=== PATIENT | male | born 1955 | race African-American/Black ===

== ENCOUNTER 2024-06-03 19:35 | Inpatient (IN) | payer MEDICARE, MEDICAID ==
[~2024-06-03] VITALS: Ht 185.4 cm; Wt 82.9 kg
[~2024-06-03 19:35] MED LIST: ALBU108A5 INH; ATOR20TA PO; CEFD300C2 PO; FURO1TAB31 PO; FURO40TA4 PO; GABA-1250 PO; GLIP5TAB21 PO; ISOS10TA2 PO; LISI-275 PO; METO25TA93 PO; NIFE90TA75 PO; PANT40TA2 PO; PRED20TA2 PO; SEMA4INJ SC; SPIR25TA PO; TAMS0.4C39 PO
--- NOTE | 2024-06-03 19:47 | ED.PDOC ---
HPI Comments 68 year old male CYNDI presents to the ED with chief complaint of SOB. Patient reports that he has been experiencing SOB for several days now, worsening over time and had visited [facility] for further evaluation. EMS relays that the patient was found to have elevated troponin and was transferred to our ED for higher level of care. Patient states he feels much better when sitting up and believes he is having CHF exacerbation, which he has had before. Patient notes that he is on 2L of O2 via NC at home. Patient denies any chest pain, dizziness, fever, chills, cough, or headache. Chief Complaint: Shortness of Breath Time Seen by MD: 19:42 Primary Care Provider: RENEK Reviewed Notes: Nurses Notes, Injection Mold Tooling Technician Notes, Medications, Allergies Allergies: Coded Allergies: NO KNOWN ALLERGIES (Unverified , 06/10/12) Home Meds Active Scripts Furosemide (Lasix) 40 Mg Tab, 40 MG PO BID for 30 Days, #60 TAB 3 Refills Prov:NISREEN CASTANEDA MD 11/05/23 Spironolactone (Aldactone) 25 Mg Tab, 50 MG PO DAILY for 30 Days, #30 TAB 3 Refills Prov:NISREEN CASTANEDA MD 11/05/23 Lisinopril (Lisinopril) 5 Mg Tab, 20 MG PO BID for 30 Days, #60 TAB 3 Refills Prov:NISREEN CASTANEDA MD 11/05/23 Reported Medications Gabapentin (Gabapentin) 300 Mg Cap, 1 CAP PO TID 10/31/23 Lisinopril (Lisinopril) 5 Mg Tab, 1 TAB PO DAILY 10/31/23 Metoprolol Succinate (Metoprolol Succinate Er) 25 Mg Tab, 1 TAB PO DAILY 10/31/23 Semaglutide (Ozempic) 4 Mg/3 Ml Inj, 1 MG SC QWEEKLY 10/31/23 Atorvastatin Calcium (Lipitor) 20 Mg Tab, 1 TAB PO DAILY 10/31/23 Glipizide (Glipizide) 5 Mg Tab, 1 TAB PO BID 10/31/23 Albuterol Sulfate (Albuterol Sulfate Hfa) 108 Mcg/Act Aer, 2 PUFF INH Q6HR PRN for WHEEZING 10/31/23 Furosemide (Furosemide) 40 Mg Tab, 1 TAB PO DAILY 10/31/23 Tamsulosin Hcl (Tamsulosin Hcl) 0.4 Mg Cap, 1 TAB PO DAILY 10/31/23 Nifedipine (Nifedipine Er) 90 Mg Tab, 1 TAB PO DAILY 06/10/12 Information Source: Patient, Emergency Med Personnel Mode of Arrival: EMS Severity: Moderate Timing: Days Duration: Since onset Prehospital treatment: None Onset: At Rest Cardiac Risk Factors: HTN, Diabetes Associated Signs and Symptoms: SOB Past Medical History PAST MEDICAL HISTORY: CHF, DM, HTN Surgical History: Denies all surgeries Family History Family History: No family hx of HTN, No family hx of Stroke Social History Smoker: Cigarettes, Less Than 1 Pack/Day Alcohol: Other Drugs: Denies Drug Use Lives In: Home Constitutional: denies: chills, diaphoresis, fatigue, fever, malaise, sweats, weakness, others EENTM: denies: blurred vision, double vision, ear bleeding, ear discharge, ear drainage, ear pain, ear ringing, eye pain, eye redness, hearing loss, mouth pain, mouth swelling, nasal discharge, nose bleeding, nose congestion, nose pain, photophobia, tearing, throat pain, throat swelling, voice changes, others Respiratory: reports: shortness of breath; denies: cough, hemoptysis, orthopnea, SOB at rest, SOB with excertion, stridor, wheezing, others Cardiovascular: denies: chest pain, dizzy spells, diaphoresis, Dyspnea on exertion, edema, irregular heart beat, left arm pain, lightheadedness, palpitations, PND, syncope, others Gastrointestinal: denies: abdomen distended, abdominal pain, blood streaked bowels, constipated, diarrhea, dysphagia, difficulty swallowing, hematemesis, melena, nausea, poor appetite, poor fluid intake, rectal bleeding, rectal pain, vomiting, others Genitourinary: denies: burning, dysuria, flank pain, frequency, hematuria, incontinence, penile discharge, penile sore, pain, testicle pain, testicle swelling, urgency, others Neurological: denies: dizziness, fainting, headache, left sided numbness, left sided weakness, numbness, paresthesia, pre-existing deficit, right sided numbness, right sided weakness, seizure, speech problems, tingling, tremors, weakness, others Musculoskeletal: denies: back pain, gout, joint pain, joint swelling, muscle pain, muscle stiffness, neck pain, others Integumetry: denies: bruises, change in color, change in hair/nails, dryness, laceration, lesions, lumps, rash, wounds, others Allergic/Immunocompromised: denies: Difficulty Healing, Frequent Infections, Hives, Itching, others Hematologic/Lymphatic: denies: anemia, blood clots, easy bleeding, easy bruising, swollen glands, others Endocrine: denies: excessive hunger, excessive sweating, excessive thirst, excessive urination, flushing, intolerance to cold, intolerance to heat, unexpla ined weight gain, unexplained weight loss, others Psychiatric: denies: anxiety, bipolar disorder, depression, hopeless, panic disorder, schizophrenia, sleepless, suicidal, others All Other Systems: Reviewed and Negative Physical Exam General Appearance: No Apparent Distress, Normal HEENT: Normal ENT Inspection, PERRL/EOMI Neck: Full Range of Motion, Non-Tender, Normal, Normal Inspection Respiratory: Chest Non-Tender, Lungs Clear, No Accessory Muscle Use, No Respiratory Distress, Normal Breath Sounds Cardiovascular: No Edema, No JVD, No Murmur, No Gallop, Normal Peripheral Pulses, Regular Rate/Rhythm Breast Exam: Deferred Gastrointestinal: No Organomegaly, Non Tender, No Pulsatile Mass, Normal Bowel Sounds, Soft Genitalia: Deferred Pelvic: Deferred Rectal: Deferred Extremities: No calf tenderness, Normal capillary refill, Normal inspection, No rmal range of motion, Non-tender, No pedal edema Musculoskeletal : Apperance: Normal Neurologic: Alert, client services director II-XII nml as Tested, No Motor Deficits, Normal Affect, Normal Mood, No Sensory Deficits Cerebellar Function: Normal Reflexes: Normal Skin: Dry, Normal Color, Warm Lymphatic: No Adenopathy EKG EKG : Pulse Rate (adult): 81 Addy: Normal Cardiac Rhythm: NSR Block: RBBB Hypertrophy: None ST: Nonsp Was a procedure done? Was a procedure done?: No CP Differential Dx Differential Diagnosis: Other Differential Diagnosis: Other Differential Diagnosis: Angina, Aortic dissection, Chest Wall Pain, Cholelithia sis, Costochondritis, Esophageal reflux/spasm, Gastritis, Myocardial Infarction, Pericarditis, Pneumonia, Pneumothorax, Pulmonary Embolus X-Ray, Labs, Meds, VS Vital Signs Date Time Temp Pulse Resp B/P (MAP) Pulse Ox O2 Delivery O2 Flow Rate FiO2 10/30/24 20:35 81 06/03/24 20:32 81 06/03/24 20:16 97.9 78 11 194/111 (138) 98 97.9 06/03/24 19:36 79 06/03/24 19:36 98.1 78 20 181/102 (128) 98 Lab Test 06/03/24 20:28 06/03/24 20:00 Range/Units Urine Color Pending Urine Clarity Pending Urine pH Pending Urine Specific [place] Pending Urine Protein Pending Urine Ketones Pending Urine Blood Pending Urine Nitrite Pending Urine Bilirubin Pending Urine Urobilinogen Pending Urine Leukocyte Esterase Pending Urine RBC Pending Urine WBC Pending Urine Squamous Epithelial Cells Pending Urine Bacteria Pending Urine Glucose Pending White Blood Count 5.1 4.4-10.8 10^3/uL Red Blood Count 4.20 L 4.5-5.90 10^6/uL Hemoglobin 12.6 L 13.5-17.5 g/dL Hematocrit 38.4 L 41.0-53.0 % Mean Corpuscular Volume 91.5 80.0-100.0 fL Mean Corpuscular Hemoglobin 29.9 28.0-32.0 pg Mean Corpuscular Hemoglobin Concent 32.7 32.0-36.0 g/dL Red Cell Distribution Width 16.5 H 11.8-14.3 % Platelet Count 188 140-450 10^3/uL Mean Platelet Volume 9.1 6.9-10.8 fL Neutrophils (%) (Auto) 73.1 37.0-80.0 % Lymphocytes (%) (Auto) 16.1 10.0-50.0 % Monocytes (%) (Auto) 8.0 0.0-12.0 % Eosinophils (%) (Auto) 1.9 0.0-7.0 % Basophils (%) (Auto) 0.9 0.0-2.0 % Neutrophils # (Auto) 3.7 1.6-8.6 10 ^3/uL Lymphocytes # (Auto) 0.8 0.4-5.4 10 ^3/uL Monocytes # (Auto) 0.4 0-1.3 10 ^3/uL Eosinophils # (Auto) 0.1 0-0.8 10 ^3/uL Basophils # (Auto) 0 0-0.2 10 ^3/uL Nucleated Red Blood Cells 0.2 % Sodium Level Pending Potassium Level Pending Chloride Level Pending Carbon Dioxide Level Pending Anion Gap Pending Blood Urea Nitrogen Pending Creatinine Pending Glomerular Filtration Rate Calc Pending BUN/Creatinine Ratio Pending Serum Glucose Pending Calcium Level Pending Troponin I High Sensitivity 103 *H </=54 ng/L Time of 1ST Reevaluation: 20:42 Reevaluation 1ST: Unchanged (child monitor- nsr) Time of 2ND Reevaluation: 20:23 Reevaluation 2ND: Resolved (child monitor- nsr) Time of 3RD Reevaluation: 20:36 Reevaluation 3RD: Unchanged (child monitor- nasr) Patient Education/Counseling: Diagnosis, Treatment Family Education/Counseling: No Family Present Additional Information pt was accepted by Dr Heart from [facility] unstable angina. he has been chest pain free while here. i will consult hospitalist to admit him Departure 1 Departure Time of Disposition: 20:24 Impression: Primary Impression: Unstable angina Disposition: ADMITTED INPATIENT Admit to: Tele Condition: Stable Critical Care Note Critical Care Time?: Yes Critical care comment: due to concerns for patient's condition with acute deterioration, causing life and limb threatening states, the care required my highest level of attention. i assessed the patient, ordered the proper tests, reassessed the response to treatments, communicated with medical personnel, formulated a plan of care and disposition. total time include at least 50% face-face interactions and does not include any procedures Stability Stability form required: No Heart Score Heart Score: Heart Score Response (Comments) Value History Highly Suspicious 2 EKG Normal 0 Age >65 2 Risk Factors >3 or Hx ASHD 2 Troponin 1-2 x's Normal limit 1 Total 7 I personally scribed for CHUYITA SUN MD ([email or web address]) on 06/03/24 at 19:47. Electronically submitted by Pablo Azevedo ([email or web address]). CHUYITA SUN MD Jun 03, 2024 19:47
[2024-06-03 20:12] LABS: Basophils # (auto) 0 10 ^3/uL (0-0.2); Basophils % (auto) 0.9 % (0.0-2.0); Eosinophils # (auto) 0.1 10 ^3/uL (0-0.8); Eosinophils % (auto) 1.9 % (0.0-7.0); Hematocrit 38.4 % (41.0-53.0); Hemoglobin 12.6 g/dL (13.5-17.5); Lymphocytes # (auto) 0.8 10 ^3/uL (0.4-5.4); Lymphocytes % (auto) 16.1 % (10.0-50.0); Mean Corpuscular Hemoglobin 29.9 pg (28.0-32.0); Mean Corpuscular Hgb Conc. 32.7 g/dL (32.0-36.0); Mean Corpuscular Volume 91.5 fL (80.0-100.0); Monocytes # (auto) 0.4 10 ^3/uL (0-1.3); Neutrophils # (auto) 3.7 10 ^3/uL (1.6-8.6); Neutrophils % (auto) 73.1 % (37.0-80.0); Nucleated Red Blood Cells % 0.2 %; Platelet Count (auto) 188 10^3/uL (140-450); Red Cell Distribution Width 16.5 % (11.8-14.3); White Blood Cell 5.1 10^3/uL (4.4-10.8)
[2024-06-03 20:27] LABS: Chloride 110 mmol/L (98-107); Potassium 4.2 mmol/L (3.5-5.1); Sodium 148 mmol/L (136-145)
[2024-06-03 20:28] LABS: Anion Gap 7 (5-15); Calcium 9.1 mg/dL (8.7-10.4); Carbon Dioxide 31 mmol/L (20-31)
[2024-06-03 20:30] LABS: Urine Bacteria None Seen /hpf (None Seen)
[2024-06-03 20:33] LABS: BUN/Creatinine Ratio 19.1 (10.0-20.0); Blood Urea Nitrogen 26 mg/dL (9-23); Glucose 113 mg/dL (74-106)
[2024-06-03] MEDS ORDERED: DEXTROSE (50%) 50ML SYRG IV PRN (21:00)
[2024-06-03] MEDS ORDERED: ONDANSETRON HCL 4 MG/2 ML VIAL IV PRN (21:00)
[2024-06-03] MEDS ORDERED: NITROGLYCERIN 0.4 MG SL TAB SL PRN (21:00)
[2024-06-03] MEDS ORDERED: TEMAZEPAM 15 MG CAP PO PRN (21:00)
[2024-06-03] MEDS ORDERED: MORPHINE SULFATE INJ 2 MG/ml SYRG IV PRN (21:00)
[2024-06-03 21:16] LABS: Urine Amorphous Crystal FEW /hpf (None Seen); Urine Blood TRACE /uL (Negative); Urine Clarity Clear (Clear); Urine Color Colorless (Yellow); Urine Protein, UAD 2+ (Negative); Urine Specific Gravity 1.008 (1.001-1.035); Urine Urobilinogen Normal (Negative); Urine WBC <1 /hpf (0 - 3); Urine pH 5.5 (5.0-9.0)
[2024-06-03] MEDS: LABETALOL HCL 20 MG/4 ML VL IV ONE (21:23)
[2024-06-03 21:27] VITALS: BP 181/102; PULSE 81; RESP 20; TEMP 97.9; O2SAT 98
--- NOTE | 2024-06-03 21:30 | DVH ---
CHEST RADIOGRAPH Indication:cp Technique: Single frontal view of the chest was obtained Comparison: XY CHEST PORTABLE on DOS: 10/30/23 Findings/ IMPRESSION: Mild cardiomegaly with moderate bilateral pleural effusions. Superimposed infection not excluded. No pneumothorax.
--- NOTE | 2024-06-03 21:45 | ECG ---
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
--- NOTE | 2024-06-03 21:45 | ECG ---
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
[2024-06-03] MEDS: FUROSEMIDE 40 MG/4 ML VIAL IV ONE (21:48)
[2024-06-03] MEDS: InsuLIN REG 1unit/0.01ml Soln (100units/ml) SC SCH (22:00)
[2024-06-03] MEDS: ACCU-CHEK COMFORT CURVE STRIP VI SCH (22:22)
[2024-06-03] MEDS: ATORVASTATIN 20 MG TAB PO SCH (22:25)
[2024-06-03] MEDS: GABAPENTIN 300 MG CAP PO SCH (22:25)
--- NOTE | 2024-06-03 23:33 | DVHHP2 ---
History of Present Illness Reason for Visit: Shortness of breath History of Present Illness 68 year with a history of congestive heart failure evaluation shortness for breath. The patient reports a two day history of worsening shortness for breath with bilateral lower extremity swelling as well as testicular swelling. Reports mild chest pressure. Denies cough or fever. He currently uses oxygen at home. Denies any other acute complaints at the moment. Past Medical History Hypertension, diabetes mellitus and congestive heart failure Past Surgical History Denies Family History Denies Smoke: <1 pack per day ALCOHOL: occassional Drugs: None Lives: with Family Review of Systems Review of Systems Review of systems are currently negative otherwise addressed in HPI. Allergies: Coded Allergies: NO KNOWN ALLERGIES (Unverified , 06/10/12) Medications Current Medications Medications Dose Ordered Sig/Keegan Route Start Time Stop Time Status Last Admin Dose Admin Atorvastatin Calcium 20 mg HS PO 06/03/24 22:00 06/03/24 22:25 20 MG Aspirin 162 mg DAILY PO 06/04/24 10:00 Albuterol 2.5 mg Q6HPRN PRN NEB 06/03/24 21:00 Gabapentin 300 mg BID PO 06/03/24 22:00 06/03/24 22:25 300 MG Metoprolol Succinate 25 mg DAILY PO 06/04/24 10:00 Lisinopril 20 mg DAILY PO 06/04/24 10:00 Nifedipine 90 mg DAILY PO 06/04/24 10:00 Spironolactone 50 mg DAILY PO 06/04/24 10:00 Hydralazine HCl 10 mg Q6HP PRN IV 06/03/24 21:00 Diagnostic Test (Pha) 1 strip ACHS 06/03/24 22:00 06/03/24 22:22 1 STRIP Insulin Human Regular ACHS SC 06/03/24 22:00 Dextrose 50 ml UD PRN IV 06/03/24 21:00 Temazepam 15 mg QHSP PRN PO 06/03/24 21:00 Ondansetron HCl 4 mg Q4HP PRN IV 06/03/24 21:00 Acetaminophen 650 mg Q6HP PRN PO 06/03/24 21:00 Nitroglycerin 0.4 mg Q5MINP PRN SL 06/03/24 21:00 Morphine Sulfate 2 mg Q30M PRN IV 06/03/24 21:00 Furosemide 20 mg BIDD IV 06/04/24 06:00 Exam Vital Signs Vital Signs Date Time Temp Pulse Resp B/P (MAP) Pulse Ox O2 Delivery O2 Flow Rate FiO2 06/03/24 22:40 78 06/03/24 22:00 19 204/117 (146) 99 06/03/24 21:54 Nasal Cannula* 6 44 06/03/24 21:27 97.9 97.9 Exam Gen: 68-year-old male in mild distress Skin: Warm, dry, normal color and texture, no rash. HEENT: Normocephalic atraumatic, mucous membranes moist and pink. Neck: Cervical and supraclavicular nodes normal without enlargement, trachea is midline, thyroid gland is normal without masses. Pulmonary: Clear to auscultation and percussion bilaterally. Cardiac: Regular rate and rhythm. No murmur Abdomen: Soft, nontender, nondistended, bowel sounds present all 4 quadrants, no guarding, no rigidity, no organomegaly. Extremities: No cyanosis, clubbing, plus two bilateral pedal edema Neuro: Cranial nerves II through XII grossly intact, normal affect and speech, no focal motor deficits. Labs/Xrays ORDERING PHYSICIAN: CHUYITA SUN MD PROCEDURE(s): CXRP - CHEST PORTABLE REASON: cp ORDER NUMBER(s): [id number], ACCESSION NUMBER(s): [id number] CHEST RADIOGRAPH Indication:cp Technique: Single frontal view of the chest was obtained Comparison: XY CHEST PORTABLE on DOS: 10/30/23 Findings/ IMPRESSION: Mild cardiomegaly with moderate bilateral pleural effusions. Superimposed infection not excluded. No pneumothorax. Labs Test 06/03/24 23:00 06/03/24 20:28 06/03/24 20:00 Range/Units Urine Color Colorless Yellow Urine Clarity Clear Clear Urine pH 5.5 5.0-9.0 Urine Specific [place] 1.008 1.001-1.035 Urine Protein 2+ H Negative Urine Ketones Negative Negative Urine Blood Trace H Negative /uL Urine Nitrite Negative Negative Urine Bilirubin Negative Negative Urine Urobilinogen Normal Negative mg/dL Urine Leukocyte Esterase Negative Negative /uL Urine RBC 1 0 - 3 /hpf Urine WBC <1 0 - 3 /hpf Urine Squamous Epithelial Cells Few <5 /hpf Urine Amorphous Crystals Few None Seen /hpf Urine Bacteria None seen None Seen /hpf Urine Glucose Normal Normal mg/dL White Blood Count 5.1 4.4-10.8 10^3/uL Red Blood Count 4.20 L 4.5-5.90 10^6/uL Hemoglobin 12.6 L 13.5-17.5 g/dL Hematocrit 38.4 L 41.0-53.0 % Mean Corpuscular Volume 91.5 80.0-100.0 fL Mean Corpuscular Hemoglobin 29.9 28.0-32.0 pg Mean Corpuscular Hemoglobin Concent 32.7 32.0-36.0 g/dL Red Cell Distribution Width 16.5 H 11.8-14.3 % Platelet Count 188 140-450 10^3/uL Mean Platelet Volume 9.1 6.9-10.8 fL Neutrophils (%) (Auto) 73.1 37.0-80.0 % Lymphocytes (%) (Auto) 16.1 10.0-50.0 % Monocytes (%) (Auto) 8.0 0.0-12.0 % Eosinophils (%) (Auto) 1.9 0.0-7.0 % Basophils (%) (Auto) 0.9 0.0-2.0 % Neutrophils # (Auto) 3.7 1.6-8.6 10 ^3/uL Lymphocytes # (Auto) 0.8 0.4-5.4 10 ^3/uL Monocytes # (Auto) 0.4 0-1.3 10 ^3/uL Eosinophils # (Auto) 0.1 0-0.8 10 ^3/uL Basophils # (Auto) 0 0-0.2 10 ^3/uL Nucleated Red Blood Cells 0.2 % Sodium Level 148 H 136-145 mmol/L Potassium Level 4.2 3.5-5.1 mmol/L Chloride Level 110 H 98-107 mmol/L Carbon Dioxide Level 31 20-31 mmol/L Anion Gap 7 5-15 Blood Urea Nitrogen 26 H 9-23 mg/dL Creatinine 1.36 H 0.700-1.30 mg/dL Glomerular Filtration Rate Calc 57 >90 mL/min BUN/Creatinine Ratio 19.1 10.0-20.0 Serum Glucose 113 H 74-106 mg/dL Calcium Level 9.1 8.7-10.4 mg/dL B-Type Natriuretic Peptide 1646.05 0-100 pg/mL Assessment/Plan Assessment/Plan Assessment Acute on chronic congestive heart failure Elevated troponin rule out NSTEMI Diabetes mellitus Chronic kidney disease Accelerated hypertension Plan Admit the patient to telemetry to the hospitalist Cardiology consultation IV Lasix Resume home medications Continue treatment per orders. Plan discussed with: Patient My Orders Orders - NISREEN TARANGO AGACNP Procedure Category Date Status Time Atorvastatin (Lipitor) PHA 06/03/24 In Process 22:00 Aspirin Tablet PHA 06/04/24 In Process 10:00 Gabapentin Capsule PHA 06/03/24 In Process (Neurontin Capsule) 22:00 Metoprolol Xl PHA 06/04/24 In Process Succinate (Toprol Xl) 10:00 Lisinopril Tablet PHA 06/04/24 In Process (Zestril Tablet) 10:00 Nifedipine Er PHA 06/04/24 In Process (Procardia Xl 10:00 Spironolactone PHA 06/04/24 In Process (Aldactone) 10:00 Hydralazine Injection PHA 06/03/24 In Process (Apresoline Inject 21:00 * Cardiology Consult CONS 06/03/24 Transmitted 20:57 Basic Metabolic Panel LAB 06/04/24 Verified 04:00 Consistent DIET 06/04/24 Transmitted Carb(Ccho)Diabetes Breakfast Glucose Blood PHA 06/03/24 In Process (Accu-Chek Comfort 22:00 Insulin R (Human) PHA 06/03/24 In Process (Insulin R) 22:00 Dextrose 50% Syringe PHA 06/03/24 In Process 21:00 Admit ADMIT 06/03/24 Transmitted 20:57 Temazepam (Restoril) PHA 06/03/24 In Process 21:00 Ondansetron Hcl PHA 06/03/24 In Process (Zofran) 21:00 Complete Blood Count LAB 06/04/24 Verified 04:00 Echo 2d Mode Cardiac US 06/03/24 Logged DOP 20:57 Condition: Fair EDDI 06/03/24 In Process 20:57 Acetaminophen Tablet PHA 06/03/24 In Process (Tylenol Tablet) 21:00 Bedrest With Bathroom EDDI 06/03/24 In Process Privileg 20:57 Nitroglycerin PHA 06/03/24 In Process Sublingual (Ntrostat 21:00 Morphine Sulfate PHA 06/03/24 In Process Injection 21:00 Stat Ekg For Chest [facility] 06/03/24 In Process Pain 20:57 Notify Md Of Changes [facility] 06/03/24 In Process From Base 20:57 Make Up Operator For [facility] 06/03/24 In Process 24 Hours 20:57 Emergency Dysrhythmia [facility] 06/03/24 In Process Protocol 20:57 Rhythm Strips Once [facility] 06/03/24 In Process Every Shift 20:57 Oxygen By Nasal RT 06/03/24 Transmitted Cannula 20:57 Albuterol Medneb PHA 06/03/24 In Process (Ventolin Medneb) 21:00 Furosemide Injection [facility] 06/04/24 In Process (Lasix Injection) 06:00 Date of Service: Jun 03, 2024 Billing Provider: NISREEN TARANGO Common Visit Codes: [id number] INP/OBS CARE (HIGH) NISREEN TARANGO Jun 03, 2024 23:33
[2024-06-03] MEDS: cloNIDine HCL 0.1 MG TAB PO ONE (23:50)
[2024-06-04] MEDS: hydrALAZINE HCL 20 MG/ML VL IV PRN (04:27)
[2024-06-04 04:41] VITALS: PULSE 77; RESP 20; O2SAT 3; O2SAT 96
[2024-06-04] MEDS: ALBUTEROL SULF 2.5 MG/0.5ML(0.5%) NEB SOLN NEB PRN (04:41)
[2024-06-04 04:42] LABS: Basophils # (auto) 0 10 ^3/uL (0-0.2); Basophils % (auto) 0.9 % (0.0-2.0); Eosinophils # (auto) 0.1 10 ^3/uL (0-0.8); Eosinophils % (auto) 2.1 % (0.0-7.0); Hematocrit 35.5 % (41.0-53.0); Hemoglobin 11.5 g/dL (13.5-17.5); Lymphocytes # (auto) 0.9 10 ^3/uL (0.4-5.4); Lymphocytes % (auto) 19.9 % (10.0-50.0); Mean Corpuscular Hemoglobin 29.8 pg (28.0-32.0); Mean Corpuscular Hgb Conc. 32.4 g/dL (32.0-36.0); Monocytes # (auto) 0.6 10 ^3/uL (0-1.3); Monocytes % (auto) 13.1 % (0.0-12.0); Neutrophils # (auto) 2.9 10 ^3/uL (1.6-8.6); Nucleated Red Blood Cells % 0.1 %; Platelet Count (auto) 182 10^3/uL (140-450); Red Blood Cells 3.86 10^6/uL (4.5-5.90); Red Cell Distribution Width 16.6 % (11.8-14.3); White Blood Cell 4.6 10^3/uL (4.4-10.8)
[2024-06-04 04:49] LABS: Chloride 112 mmol/L (98-107); Sodium 149 mmol/L (136-145)
[2024-06-04 04:50] LABS: Anion Gap 2 (5-15); Calcium 8.6 mg/dL (8.7-10.4); Carbon Dioxide 35 mmol/L (20-31)
[2024-06-04 04:51] VITALS: PULSE 81; RESP 20; O2SAT 99
[2024-06-04 04:55] LABS: BUN/Creatinine Ratio 16.9 (10.0-20.0); Blood Urea Nitrogen 26 mg/dL (9-23); Glucose 155 mg/dL (74-106)
[2024-06-04] MEDS ORDERED: FUROSEMIDE 40 MG TAB PO SCH (06:00)
[2024-06-04] MEDS: FUROSEMIDE 20 MG/2 ML VIAL IV SCH (06:06)
--- NOTE | 2024-06-04 06:57 | ECG ---
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
[2024-06-04] MEDS: NIFEdipine ER 30 MG TAB PO SCH ×2 (08:15→08:40)
[2024-06-04] MEDS: clonazePAM 0.5 MG TAB PO ONE (08:30)
[2024-06-04 09:30] VITALS: O2SAT 99
--- NOTE | 2024-06-04 10:23 | DVH ---
Procedure: CT CHEST WITHOUT CONTRAST Reason for study/Clinical History: ro pneumonia Comparison Study: None available at time of dictation. Exam Date: 06/04/2024 09:48 AM TECHNIQUE: Multidetector CT of the chest was performed from the lung apices to the upper abdomen with out the use of intravenous contract. Axial, coronal and sagittal multiplanar reformats were performed . Radiation Dose Information: CT Dose: CTDI volume is 13.18 mGy. Dose-length product is 488.54 mGy*cm The dose indicators for CT are the volume Computed Tomography (CT) Dose Index (CTDIvol) and the Dose Length Product (DLP), and are measured in units of mGy and mGy-cm, respectively. These indicators are not patient dose, but values generated from the CT scanner acquisition factors. The report includes radiation exposure data for exposures received during this examination. FINDINGS: Lower neck: Normal thyroid. Lungs: Large bilateral pleural effusions with associated and consolidation in both lungs. Heart/Vascular Structures: Moderate cardiomegaly. Mild coronary artery disease. No pericardial effusi on. Lymph Nodes: No adenopathy Pleura: Large bilateral pleural effusions as above. Musculoskeletal: No acute osseous abnormality. Soft tissues: Normal. Upper abdomen: Limited portions of the upper abdomen are unremarkable. IMPRESSION: 1. Moderate cardiomegaly with evidence of congestive failure including large bilateral pleural effusi ons with associated atelactasis and consolidation in both lungs. Superimposed pneumonia is not exclud ed. Recommend clinical correlation and continued follow-up Radiation optimization: All CT scans at this facility use at least one of these dose optimization mart hniques: automated exposure control mA and/or kV adjustment per patient size (includes targeted exam s where dose is matched to clinical indication) or iterative reconstruction. HS:Y
--- NOTE | 2024-06-04 10:35 | DVHINCON2 ---
Date Seen: Jun 04, 2024 Referring Physician Reason for Consultation Elevated troponins History of Present Illness 68-year-old male patient with history of heart failure with preserved ejection fraction (EF 53% as of October), hypertension, type 2 diabetes, chronic kidney disease, history of methamphetamine and nicotine dependence (last use prior to hospitalization). He lives at home with a caregiver and is on home oxygen therapy. Patient presents with a chief complaint of shortness of breaths, which he reports has worsened over the past 2 days. He has experienced similar episodes in the past, though these instance is progressively worsening. Additionally, he notes bilateral lower extremity edema and testicular swelling. The patient denies any other acute complaint. In the ER his blood pressure was markedly elevated at 1 90/110 mmHg, indicative of hypertensive urgency or possible emergency. He was started on clonidine 0.2 mg once and nifedipine 60 mg daily for blood pressure control. His troponin levels were mildly elevated at 103, 1 08 and 93 likely due to demand ischemia secondary to hypertensive stress. Additionally his creatinine went from 1,36 to1,54 suggesting an acute kidney injury on chronic kidney disease. The chest x-ray showed bilateral effusion with no pneumothorax noted a superimposed infection could not be excluded. Chest CT was ordered for further evaluation of respiratory symptoms and pulmono logy was consulted due to the fusion findings on imaging. Cardiology was consulted given the troponin elevation and the need to assess for ischemic changes related to hypertensive urgency. Past Medical History Uncontrolled hypertension Drug abuse Methamphetamine use Chronic kidney disease stage IIIB Heart failure systolic/diastolic NYHA lll Drug-induced cardiomyopathy Type 2 diabetes Nicotine dependency Family History: Patient reports no known family medical history. Allergies: Coded Allergies: NO KNOWN ALLERGIES (Unverified , 06/10/12) Home Meds Active Scripts Furosemide (Lasix) 40 Mg Tab, 40 MG PO BID for 30 Days, #60 TAB 3 Refills Prov:NISREEN CASTANEDA MD 11/05/23 Spironolactone (Aldactone) 25 Mg Tab, 50 MG PO DAILY for 30 Days, #30 TAB 3 Refills Prov:NISREEN CASTANEDA MD 11/05/23 Lisinopril (Lisinopril) 5 Mg Tab, 20 MG PO BID for 30 Days, #60 TAB 3 Refills Prov:NISREEN CASTANEDA MD 11/05/23 Reported Medications Pantoprazole Sodium Sesquihydr (Protonix) 40 Mg Tab, 1 TAB PO BID for 30 Days, #60 06/04/24 Isosorbide Dinitrate (Isosorbide Dinitrate) 10 Mg Tab, 1 TAB PO TID for 30 Days, #90 06/04/24 Prednisone (Prednisone) 20 Mg Tab, 1 TAB PO BID for 5 Days, #10 06/04/24 Cefdinir (Cefdinir) 300 Mg Cap, 1 CAP PO BID for 6 Days, #12 06/04/24 Gabapentin (Gabapentin) 300 Mg Cap, 1 CAP PO TID 10/31/23 Metoprolol Succinate (Metoprolol Succinate Er) 25 Mg Tab, 1 TAB PO DAILY 10/31/23 Semaglutide (Ozempic) 4 Mg/3 Ml Inj, 1 MG SC QWEEKLY 10/31/23 Atorvastatin Calcium (Lipitor) 20 Mg Tab, 1 TAB PO DAILY 10/31/23 Glipizide (Glipizide) 5 Mg Tab, 1 TAB PO BID 10/31/23 Albuterol Sulfate (Albuterol Sulfate Hfa) 108 Mcg/Act Aer, 2 PUFF INH Q6HR PRN for WHEEZING 10/31/23 Tamsulosin Hcl (Tamsulosin Hcl) 0.4 Mg Cap, 1 TAB PO DAILY 10/31/23 Nifedipine (Nifedipine Er) 90 Mg Tab, 1 TAB PO DAILY 06/10/12 Current Medications Current Medications Medications (Trade) Dose Ordered Sig/Keegan Route PRN Reason Start Time Stop Time Status Last Admin Atorvastatin Calcium (Lipitor) 20 mg HS PO 06/03/24 22:00 06/03/24 22:25 Aspirin 162 mg DAILY PO 06/04/24 10:00 Albuterol (Ventolin Medneb) 2.5 mg Q6HPRN PRN NEB SHORTNESS OF BREATH 06/03/24 21:00 06/04/24 04:41 Furosemide (Lasix Tablet) 40 mg BIDD PO 06/04/24 06:00 06/03/24 21:31 DC Gabapentin (Neurontin Capsule) 300 mg BID PO 06/03/24 22:00 06/03/24 22:25 Metoprolol Succinate (Toprol Xl) 25 mg DAILY PO 06/04/24 10:00 Lisinopril (Zestril Tablet) 20 mg DAILY PO 06/04/24 10:00 Nifedipine (Procardia Xl (Time-Release)) 90 mg DAILY PO 06/04/24 10:00 06/04/24 08:12 DC Spironolactone (Aldactone) 50 mg DAILY PO 06/04/24 10:00 Hydralazine HCl (Apresoline Injection) 10 mg Q6HP PRN IV SBP>150 06/03/24 21:00 06/04/24 04:27 Diagnostic Test (Pha) (Accu-Chek Comfort Curve T) 1 strip ACHS 06/03/24 22:00 06/04/24 06:32 Insulin Human Regular (InsuLIN R) ACHS SC 06/03/24 22:00 06/04/24 06:31 Dextrose 50 ml UD PRN IV Blood Sugar LESS THAN 60 06/03/24 21:00 Temazepam (Restoril) 15 mg QHSP PRN PO FOR INSOMNIA 06/03/24 21:00 Ondansetron HCl (Zofran) 4 mg Q4HP PRN IV NAUSEA / VOMITING 06/03/24 21:00 Acetaminophen (Tylenol Tablet) 650 mg Q6HP PRN PO PAIN SCALE 1-3 OR TEMP>100.4 06/03/24 21:00 Nitroglycerin (Ntrostat Sublingual) 0.4 mg Q5MINP PRN SL FOR CHEST PAIN 06/03/24 21:00 Morphine Sulfate 2 mg Q30M PRN IV FOR CHEST PAIN 06/03/24 21:00 Furosemide (Lasix Injection) 20 mg BIDD IV 06/04/24 06:00 06/04/24 08:50 DC 06/04/24 06:06 Nifedipine (Procardia Xl (Time-Release)) 60 mg BID PO 06/04/24 08:15 Furosemide (Lasix Injection) 40 mg BIDD IV 06/04/24 18:00 Review of Systems Constitutional: No: Fever, Chills, Sweats, Weakness, Malaise, Other Eyes: No: Pain, Vision change, Conjunctivae inflammation, Eyelid inflammation, Other, Redness ENT: No: Ear pain, Ear discharge, Nose pain, Nose discharge, Nose congestion, Mouth pain, Mouth swelling, Throat pain, Throat swelling, Other Respiratory: Cough present, Shortness of breath, improving No Wheezing, Hemoptysis, Pleuritic Pain, Sputum, Wheezing, Other Cardiovascular: No: Chest Pain, Palpitations, Orthopnea, Paroxysmal Noc. Dyspnea, Edema, Lt Headedness, Other Gastrointestinal: No: Nausea, Vomiting, Abdominal Pain, Diarrhea, Constipation, Melena, Hematochezia, Other Musculoskeletal: No: other, neck pain, shoulder pain, arm pain, back pain, hand pain, leg pain, foot pain Neurological:; yes: Confusion, weakness, change in his speech Vital Signs Vital Signs Date Time Temp Pulse Resp B/P (MAP) Pulse Ox O2 Delivery O2 Flow Rate FiO2 06/04/24 09:30 99 Nasal Cannula 3.0 06/04/24 09:30 32 06/04/24 07:00 79 15 191/107 (135) 06/03/24 21:27 97.9 97.9 Physical Exam Examination General Appearance: AAO x1, none Cooperative HEENT: EOMI Respiratory: Clear to auscultation, Normal air movement Cardiovascular: Regular rate, Normal S1, Normal S2 Abdominal: Normal bowel sounds Extremities: Mild/moderate lateral some edema No cyanosis, Normal pulses Skin: No rashes, No breakdown Neuro: Normal tone, Sensation intact, Cranial nerves 3-12 NL, Reflexes 2+ Labs/Diagnostic Data Labs Test 06/04/24 04:20 06/03/24 23:00 06/03/24 20:28 06/03/24 20:00 Range/Units White Blood Count 4.6 4.4-10.8 10^3/uL Red Blood Count 3.86 L 4.5-5.90 10^6/uL Hemoglobin 11.5 L 13.5-17.5 g/dL Hematocrit 35.5 L 41.0-53.0 % Mean Corpuscular Volume 92.0 80.0-100.0 fL Mean Corpuscular Hemoglobin 29.8 28.0-32.0 pg Mean Corpuscular Hemoglobin Concent 32.4 32.0-36.0 g/dL Red Cell Distribution Width 16.6 H 11.8-14.3 % Platelet Count 182 140-450 10^3/uL Mean Platelet Volume 9.2 6.9-10.8 fL Neutrophils (%) (Auto) 64.0 37.0-80.0 % Lymphocytes (%) (Auto) 19.9 10.0-50.0 % Monocytes (%) (Auto) 13.1 H 0.0-12.0 % Eosinophils (%) (Auto) 2.1 0.0-7.0 % Basophils (%) (Auto) 0.9 0.0-2.0 % Neutrophils # (Auto) 2.9 1.6-8.6 10 ^3/uL Lymphocytes # (Auto) 0.9 0.4-5.4 10 ^3/uL Monocytes # (Auto) 0.6 0-1.3 10 ^3/uL Eosinophils # (Auto) 0.1 0-0.8 10 ^3/uL Basophils # (Auto) 0 0-0.2 10 ^3/uL Nucleated Red Blood Cells 0.1 % Sodium Level 149 H 136-145 mmol/L Potassium Level 4.0 3.5-5.1 mmol/L Chloride Level 112 H 98-107 mmol/L Carbon Dioxide Level 35 H 20-31 mmol/L Anion Gap 2 L 5-15 Blood Urea Nitrogen 26 H 9-23 mg/dL Creatinine 1.54 H 0.700-1.30 mg/dL Glomerular Filtration Rate Calc 49 >90 mL/min BUN/Creatinine Ratio 16.9 10.0-20.0 Serum Glucose 155 H 74-106 mg/dL Calcium Level 8.6 L 8.7-10.4 mg/dL Troponin I High Sensitivity 93 *H </=54 ng/L Urine Color Colorless Yellow Urine Clarity Clear Clear Urine pH 5.5 5.0-9.0 Urine Specific [place] 1.008 1.001-1.035 Urine Protein 2+ H Negative Urine Ketones Negative Negative Urine Blood Trace H Negative /uL Urine Nitrite Negative Negative Urine Bilirubin Negative Negative Urine Urobilinogen Normal Negative mg/dL Urine Leukocyte Esterase Negative Negative /uL Urine RBC 1 0 - 3 /hpf Urine WBC <1 0 - 3 /hpf Urine Squamous Epithelial Cells Few <5 /hpf Urine Amorphous Crystals Few None Seen /hpf Urine Bacteria None seen None Seen /hpf Urine Glucose Normal Normal mg/dL B-Type Natriuretic Peptide 1646.05 0-100 pg/mL Assessment Acute encephalopathy likely due to hypertensive emergency, stroke ruled out NSTEMI type 2 likely demand ischemia due to hypertensive emergency Acute hypoxemic respiratory failure likely due to bilateral pleural effusion likely transudative due to CHF exacerbation status post thoracentesis Heart failure systolic/diastolic likely due to Drug-induced cardiomyopathy due to chronic methamphetamine abuse, NYHA lll Acute kidney injury on chronic kidney disease stage III Plan/Recommendation CT scan of the head was negative Thoracentesis, 1 L of fluid was removed Troponins elevation likely due to demand ischemia due to hypertensive emergency, NSTEMI type 2 Conservative management Decrease the blood pressure gradually Continue labetalol 20 mg q.2 hours p.r.n. IV Spironolactone 50 mg daily p.o. Lisinopril 20 mg daily p.o. Metoprolol daily p.o. 50 mg Nifedipine 60 mg b.i.d. p.o. Oxygen supplementation through nasal cannula 2 L Echocardiogram is pending UDS is pending Thank you for allowing us participate in this case Case discussed with Dr. Wren Critical care, time spent: 45 minutes. Plan discussed with: Patient, Other (grandson) Date of Service: Jun 04, 2024 Billing Provider: ROSANNA WREN MD Cardiology Common Codes: [id number] INP/OBS CARE (High) MEME CAZARES RESIDENT Jun 04, 2024 10:35
[2024-06-04] MEDS: METOPROLOL SUCCINATE XL 50 MG TAB PO SCH (10:59)
[2024-06-04] MEDS: ACETAMINOPHEN 325 MG TAB PO PRN (11:00)
[2024-06-04] MEDS: LISINOPRIL 20 MG TAB PO SCH (11:00)
[2024-06-04] MEDS: ASPirin 81 mg TAB PO SCH (11:00)
[2024-06-04] MEDS: SPIRONOLACTONE 25 MG TAB PO SCH (11:01)
[2024-06-04 12:00] VITALS: PULSE 76; RESP 17; O2SAT 100
--- NOTE | 2024-06-04 12:23 | DVH ---
CT brain without contrast CLINICAL INDICATION: Altered mental status FINDINGS: The study was performed in a multidetector scanner. This study performed taking axial imag es from the skull base up to the vertex. Both brain and bone windows are photographed. Dose lowering techniques have been used including automated exposure control and adjustment of mA and /or KV according to patient size. Cortical sulcal markings are prominent. Faint low-density changes in the periventricular white matter No hemorrhage or edema No hydrocephalus No midline shift. No extra-axial fluid collections On bone windows no calvarial lesions. Paranasal sinuses are clear IMPRESSION: 1. No acute intracranial pathology. Atrophy with periventricular leukoencephalopathy Computed Tomographic Radiation Dosimetry Report: Total CTDI vol = 63 mGy Total DLP = 1100 mGy-cm All CT scans at this medical facility are performed using dose modulation techniques as appropriate t o a performed exam including the following: Automated exposure control was utilized; adjustment of the MA and/or KvP according to patient size; a nd use of iterative reconstruction technique.
[2024-06-04] MEDS ORDERED: LABETALOL HCL 20 MG/4 ML VL IV PRN (15:00)
--- NOTE | 2024-06-04 15:56 | DVH ---
DATE: June 04, 2024 PROCEDURE: ULTRASOUND GUIDED THORACENTESIS USING TEMPORARY CATHETER HISTORY: 68 Male with right pleural effusion requiring thoracentesis. DOCUMENTATION: Informed consent was obtained and a procedural time out was performed. Anesthesia: 1% lidocaine. TECHNIQUE: Ultrasound was used to locate the right pleural fluid collection with an image archived in the PACS. The skin over the right posterior hemithorax was sterilely prepped, draped, and infiltrate d with 1% lidocaine. Under real time ultrasound guidance, the right pleural space was accessed with a 19-gauge Yueh needle and connected to Vacutainers. The Yueh catheter was advanced, the needle was re moved and the temporary catheter was advanced and connected to the Vacutainer. Approximately 1 liters of marlena fluid was removed. The temporary catheter was removed and sterile dressings were applied. FINDINGS: Ultrasound demonstrates a moderate right pleural effusion. Imaging confirms the needle tip within the fluid. Post thoracentesis imaging demonstrates no significant residual fluid. IMPRESSION: 1. SUCCESSFUL ULTRASOUND GUIDED right THORACENTESIS.
--- NOTE | 2024-06-04 16:01 | DVH ---
CHEST RADIOGRAPH Indication:S/P THORA Technique: Single frontal view of the chest was obtained Comparison: XY CHEST PORTABLE on DOS: 06/03/24, XY CHEST PORTABLE on DOS: 10/30/23 FINDINGS: Lines and Tubes: None Lungs: No focal consolidation. Pleura: No effusion. No pneumothorax. Cardiomediastinal contours: Unremarkable Bones: No acute osseous abnormality. IMPRESSION: 1. No pneumothorax status post right thoracentesis
--- NOTE | 2024-06-04 16:15 | DVHPN2 ---
Subjective denies any symptoms Reviewed: Care Plan, H&P, Labs, Medications, Previous Orders Changes from previous H/P or p: No Changes General: Per HPI Objective Vitals Vital Signs Date Time Temp Pulse Resp B/P (MAP) Pulse Ox O2 Delivery O2 Flow Rate FiO2 06/04/24 14:00 64 15 192/94 (126) 100 06/04/24 12:00 Nasal Cannula* 2 28 06/04/24 08:00 98.1 98.1 Intake/Output Intake and Output 06/04/24 07:00 Output Total 1025 ml Balance -1025 ml Output Urine Total 1025 ml General Appearance: Alert, Oriented X3, Cooperative, No acute distress HEENT: Atraumatic, PERRLA Lungs: Clear to auscultation, Normal air movement Cardiovascular: Normal S1, Normal S2 Genitourinary: No Apparent Abnormalities Musculoskeletal: Normal sensory function, Normal motor function Neuro: Normal gait, Normal speech Psych/Mental Status: Mental status NL, Mood NL Medications Current Medications Medications Dose Ordered Sig/Keegan Route Start Time Stop Time Status Last Admin Dose Admin Atorvastatin Calcium 20 mg HS PO 06/03/24 22:00 06/03/24 22:25 20 MG Aspirin 162 mg DAILY PO 06/04/24 10:00 06/04/24 13:43 162 MG Albuterol 2.5 mg Q6HPRN PRN NEB 06/03/24 21:00 06/04/24 04:41 2.5 MG Gabapentin 300 mg BID PO 06/03/24 22:00 06/04/24 13:44 300 MG Lisinopril 20 mg DAILY PO 06/04/24 10:00 06/04/24 13:44 20 MG Spironolactone 50 mg DAILY PO 06/04/24 10:00 06/04/24 13:43 50 MG Hydralazine HCl 10 mg Q6HP PRN IV 06/03/24 21:00 06/04/24 04:27 10 MG Diagnostic Test (Pha) 1 strip ACHS 06/03/24 22:00 06/04/24 06:32 1 STRIP Insulin Human Regular ACHS SC 06/03/24 22:00 06/04/24 06:31 2 UNITS Dextrose 50 ml UD PRN IV 06/03/24 21:00 Temazepam 15 mg QHSP PRN PO 06/03/24 21:00 Ondansetron HCl 4 mg Q4HP PRN IV 06/03/24 21:00 Acetaminophen 650 mg Q6HP PRN PO 06/03/24 21:00 06/04/24 13:44 650 MG Nitroglycerin 0.4 mg Q5MINP PRN SL 06/03/24 21:00 Morphine Sulfate 2 mg Q30M PRN IV 06/03/24 21:00 Nifedipine 60 mg BID PO 06/04/24 08:15 Furosemide 40 mg BIDD IV 06/04/24 18:00 Metoprolol Succinate 50 mg DAILY PO 06/05/24 10:00 Labetalol HCl 20 mg Q2HPRN PRN IV 06/04/24 15:00 Laboratory Results Laboratory Tests 06/04/24 04:20 Chemistry Test 06/03/24 20:00 06/04/24 04:20 Calcium Level 9.1 mg/dL (8.7-10.4) 8.6 mg/dL (8.7-10.4) L Cardiac Markers Test 06/03/24 20:00 B-Type Natriuretic Peptide 1646.05 pg/mL (0-100) Urinalysis Test 06/03/24 20:28 Urine Color Colorless (Yellow) Urine Clarity Clear (Clear) Urine pH 5.5 (5.0-9.0) Urine Specific [place] 1.008 (1.001-1.035) Urine Protein 2+ (Negative) H Urine Ketones Negative (Negative) Urine Blood Trace /uL (Negative) H Urine Nitrite Negative (Negative) Urine Bilirubin Negative (Negative) Urine Urobilinogen Normal mg/dL (Negative) Urine Leukocyte Esterase Negative /uL (Negative) Urine RBC 1 /hpf (0 - 3) Urine WBC <1 /hpf (0 - 3) Urine Squamous Epithelial Cells Few /hpf (<5) Urine Amorphous Crystals Few /hpf (None Seen) Urine Bacteria None seen /hpf (None Seen) Urine Glucose Normal mg/dL (Normal) Labs and/or images reviewed: Labs reviewed by me, Image(s) reviewed by me Assessment/Plan Assessment/Plan Impression: -metabolic encephalopathy, probably toxic -bilateral pleural effusions -acute on chronic systolic and diastolic heart failure -history of polysubstance abuse -NSTEMI type 2 -CKD stage IIIA -anemia Plan: -patient was found to be unarousable. CT scan of the head performed. Negative for any acute intracranial pathology. Patient now alert and oriented x4 -thoracentesis -cardiology consultation -UDS -IV diuresis -O2 supplementation to keep saturation greater than 90% -start heart failure/ACS meds -repeat labs and chest x-ray in a.m. Total time spent with patient discussing and formulating plan of care: 35 minutes. This medical document was created using an electronic medical record system with [employer] dictation system. Although this document has been carefully reviewed, there may still be some phonetic and typographical errors. These areas are purely typographical due to imperfections of the software programs, and do not reflect any compromise in the patient's medical care. Plan discussed with: Patient, Other (RN, grandson) My Orders Orders - CHECO STACK NP Procedure Category Date Status Time Metoprolol Xl PHA 06/05/24 In Process Succinate (Toprol Xl) 10:00 Labetalol Hcl PHA 06/04/24 In Process (Labetalol Hcl) 15:00 * Radiologist Consult CONS 06/04/24 Transmitted 14:59 Basic Metabolic Panel LAB 06/05/24 Verified 04:00 Complete Blood Count LAB 06/05/24 Verified 04:00 Chest Portable XY 06/04/24 Resulted 15:23 Body Fluid Culture W/ LOWELL 06/04/24 Logged GS 15:59 Date of Service: Jun 04, 2024 Billing Provider: CHECO STACK NP Common Visit Codes: [id number] INP/OBS CARE(HIGH) CHECO STACK NP Jun 04, 2024 16:15
[2024-06-04] MEDS: FUROSEMIDE 40 MG/4 ML VIAL IV SCH (16:53)
[2024-06-04 19:30] VITALS: PULSE 67; RESP 16; O2SAT 96
[2024-06-04 19:36] VITALS: O2SAT 98
[2024-06-04 19:47] LABS: Body Fluid Polymorphonuclear 11 % (0-25); Body Fluid Red Blood Cells 2728 CUMM (0-2000); Body Fluid White Blood Cells 77 CUMM (0-200)
[2024-06-05] VITALS (15 sets, daily range): BP systolic 153–174; BP diastolic 83–96; PULSE 63–70; RESP 17–20; TEMP 97.9–98.5; O2SAT 95–99
[2024-06-05] MEDS: METOPROLOL SUCCINATE XL 50 MG TAB PO SCH (11:22)
[2024-06-05 13:07] LABS: Protein, Body Fluid 1.3 g/dL (.)
--- NOTE | 2024-06-05 14:03 | DVHPN2 ---
Subjective denies any symptoms Reviewed: Care Plan, H&P, Labs, Medications, Previous Orders Changes from previous H/P or p: No Changes General: Per HPI Objective Vitals Vital Signs Date Time Temp Pulse Resp B/P (MAP) Pulse Ox O2 Delivery O2 Flow Rate FiO2 06/05/24 11:53 70 18 98 06/05/24 11:46 Nasal Cannula 4.0 06/05/24 11:46 36 06/05/24 11:22 174/95 06/05/24 08:35 97.9 97.9 Intake/Output Intake and Output 06/05/24 07:00 Intake Total 110 ml Balance 110 ml Intake Oral 110 ml # Voids 1 General Appearance: Alert, Oriented X3, Cooperative, No acute distress HEENT: Atraumatic, PERRLA Lungs: Clear to auscultation, Normal air movement Cardiovascular: Normal S1, Normal S2 Abdomen: Normal bowel sounds Genitourinary: No Apparent Abnormalities Musculoskeletal: Normal sensory function, Normal motor function Neuro: Normal gait, Normal speech Skin: Dry, Intact Psych/Mental Status: Mental status NL, Mood NL Medications Current Medications Medications Dose Ordered Sig/Keegan Route Start Time Stop Time Status Last Admin Dose Admin Atorvastatin Calcium 20 mg HS PO 06/03/24 22:00 06/04/24 22:00 20 MG Aspirin 162 mg DAILY PO 06/04/24 10:00 06/05/24 11:23 162 MG Albuterol 2.5 mg Q6HPRN PRN NEB 06/03/24 21:00 06/05/24 11:46 2.5 MG Gabapentin 300 mg BID PO 06/03/24 22:00 06/05/24 11:23 300 MG Spironolactone 50 mg DAILY PO 06/04/24 10:00 06/05/24 11:22 50 MG Hydralazine HCl 10 mg Q6HP PRN IV 06/03/24 21:00 06/04/24 04:27 10 MG Diagnostic Test (Pha) 1 strip ACHS 06/03/24 22:00 06/05/24 11:26 1 STRIP Insulin Human Regular ACHS SC 06/03/24 22:00 06/05/24 12:01 4 UNITS Dextrose 50 ml UD PRN IV 06/03/24 21:00 Temazepam 15 mg QHSP PRN PO 06/03/24 21:00 Ondansetron HCl 4 mg Q4HP PRN IV 06/03/24 21:00 Acetaminophen 650 mg Q6HP PRN PO 06/03/24 21:00 06/04/24 13:44 650 MG Nitroglycerin 0.4 mg Q5MINP PRN SL 06/03/24 21:00 Morphine Sulfate 2 mg Q30M PRN IV 06/03/24 21:00 Furosemide 40 mg BIDD IV 06/04/24 18:00 06/05/24 05:32 40 MG Metoprolol Succinate 50 mg DAILY PO 06/05/24 10:00 06/05/24 11:22 50 MG Labetalol HCl 20 mg Q2HPRN PRN IV 06/04/24 15:00 Lisinopril 40 mg DAILY PO 06/06/24 10:00 Hydralazine HCl 25 mg Q8HR PO 06/05/24 14:00 Laboratory Results Laboratory Tests 06/04/24 04:20 Urinalysis Test 06/03/24 20:28 Urine Color Colorless (Yellow) Urine Clarity Clear (Clear) Urine pH 5.5 (5.0-9.0) Urine Specific [place] 1.008 (1.001-1.035) Urine Protein 2+ (Negative) H Urine Ketones Negative (Negative) Urine Blood Trace /uL (Negative) H Urine Nitrite Negative (Negative) Urine Bilirubin Negative (Negative) Urine Urobilinogen Normal mg/dL (Negative) Urine Leukocyte Esterase Negative /uL (Negative) Urine RBC 1 /hpf (0 - 3) Urine WBC <1 /hpf (0 - 3) Urine Squamous Epithelial Cells Few /hpf (<5) Urine Amorphous Crystals Few /hpf (None Seen) Urine Bacteria None seen /hpf (None Seen) Urine Glucose Normal mg/dL (Normal) Microbiology Microbiology Date/Time Source Procedure Growth Status 06/05/24 03:12 Nose MRSA Screen - Final Complete 06/04/24 15:45 Pleural Fluid Gram Stain Pending Resulted 06/04/24 15:45 Pleural Fluid Body Fluid Culture - Preliminary Resulted Labs and/or images reviewed: Labs reviewed by me, Image(s) reviewed by me Assessment/Plan Assessment/Plan Impression: -metabolic encephalopathy, probably toxic -bilateral pleural effusions -acute on chronic systolic and diastolic heart failure -history of polysubstance abuse -NSTEMI type 2 -CKD stage IIIA -anemia Plan: Events: CT scan of the head negative. Patient now alert and oriented x4. Noted to have uncontrolled hypertension. -antihypertensives: Carvedilol, hydralazine, lisinopril, Lasix -cardiology consultation : Echocardiogram pending. Recommendations appreciated given patient was transferred from [facility] for possible left heart catheterization. -UDS: Pending -repeat labs and chest x-ray in a.m. Total time spent with patient discussing and formulating plan of care: 35 minutes. This medical document was created using an electronic medical record system with [employer] dictation system. Although this document has been carefully reviewed, there may still be some phonetic and typographical errors. These areas are purely typographical due to imperfections of the software programs, and do not reflect any compromise in the patient's medical care. Plan discussed with: Patient, Other (RN) My Orders Orders - CHECO STACK NP Procedure Category Date Status Time Metoprolol Xl PHA 06/05/24 In Process Succinate (Toprol Xl) 10:00 Labetalol Hcl PHA 06/04/24 In Process (Labetalol Hcl) 15:00 * Radiologist Consult CONS 06/04/24 Transmitted 14:59 Basic Metabolic Panel LAB 06/05/24 Logged 04:00 Complete Blood Count LAB 06/05/24 Logged 04:00 Chest Portable XY 06/04/24 Resulted 15:23 Body Fluid Culture W/ LOWELL 06/04/24 In Process GS 15:59 Lisinopril Tablet PHA 06/06/24 In Process (Zestril Tablet) 10:00 Hydralazine Hcl PHA 06/05/24 In Process Tablet (Apresoline 14:00 Date of Service: Jun 05, 2024 Billing Provider: CHECO STACK NP Common Visit Codes: [id number] DISCH DAY >30min CHECO STACK NP Jun 05, 2024 14:03
--- NOTE | 2024-06-05 14:28 | DVHSR ---
APPROVED REPORT EXAM: Two-dimensional and M-mode echocardiogram with Doppler and color Doppler. Blood Pressure: 159/96 mmHg INDICATION EF RISK FACTORS Height: 73, Weight: 174 DIMENSIONS LVDd4.9 (3.8-5.7cm)LA (2D)3.8 (1.9-4.0cm)Aortic Root3.9 (2.0-3.7cm) LVDs3.8 (2.5-4.0cm)LA (MM) (1.9-4.0cm)Aortic Cusp Exc2.1 (1.5-2.0cm) EF (%) 45.0 (55-70%)Rt. Atrium4.5 (1.9-4.0cm)Asc. Aorta cm IVSd2.0 (0.7-1.1cm)RV (D) (1.8-2.4cm) PWd1.6 (0.7-1.1cm) Mitral Valve MitralMitral Stenosis E wave0.82m/sMV Mean GR.mmHg A wave0.55m/sMV Peak GR.mmHg E/A ratio1.52D MVAcm2 DECEL [id number] 1/2 [id number] IVRTmsDop MVA1.95cm2 Aortic Valve Aortic ValveAortic Stenosis V11.06m/Leonel Mean GR.3mmHg V21.11m/Leonel Peak GR.5mmHg LVOT Diameter2.3 (1.8-2.4cm)Doppler AVA3.97cm2 Tricuspid Valve TR Velocity2.37m/s [id number] Conclusion Moderately concentric left ventricular hypertrophy. Moderately reduced left ventricular systolic fun ction with estimated ejection fraction of 40-35%. Mid inferior inferolateral wall hypokinesia. Ther e is a grade 2 diastolic dysfunction. Normal right ventricular size and dimension. Moderately reduced right ventricular systolic function. [id number] elevated right ventricular systolic [id number] mm of mercury Normal biatrial size and dimension. The aortic valve is mildly thickened and sclerotic. The mitral valve appears thickened there is mild mitral valve regurgitation. Tricuspid valve is thickened there is mild tricuspid valve regurgitation. The pulmonary valve is grossly normal. No pericardial effusion. There is large biatrial pleural effusion.
[2024-06-05] MEDS: hydrALAZINE HCL 25 MG TAB PO SCH (14:35)
[2024-06-05 15:24] LABS: Basophils # (auto) 0 10 ^3/uL (0-0.2); Basophils % (auto) 0.8 % (0.0-2.0); Eosinophils # (auto) 0.2 10 ^3/uL (0-0.8); Hematocrit 37.5 % (41.0-53.0); Lymphocytes # (auto) 0.9 10 ^3/uL (0.4-5.4); Lymphocytes % (auto) 18.7 % (10.0-50.0); Mean Corpuscular Hemoglobin 29.8 pg (28.0-32.0); Mean Corpuscular Hgb Conc. 32.1 g/dL (32.0-36.0); Mean Corpuscular Volume 92.8 fL (80.0-100.0); Monocytes # (auto) 0.5 10 ^3/uL (0-1.3); Neutrophils # (auto) 3.4 10 ^3/uL (1.6-8.6); Neutrophils % (auto) 67.5 % (37.0-80.0); Nucleated Red Blood Cells % 0.1 %; Platelet Count (auto) 167 10^3/uL (140-450); Red Blood Cells 4.04 10^6/uL (4.5-5.90); Red Cell Distribution Width 16.4 % (11.8-14.3)
[2024-06-05 15:36] LABS: Chloride 109 mmol/L (98-107); Potassium 4.1 mmol/L (3.5-5.1); Sodium 148 mmol/L (136-145)
[2024-06-05 15:37] LABS: Anion Gap 4 (5-15); Carbon Dioxide 35 mmol/L (20-31)
[2024-06-05 15:42] LABS: BUN/Creatinine Ratio 14.3 (10.0-20.0); Blood Urea Nitrogen 23 mg/dL (9-23); Glucose 148 mg/dL (74-106)
--- NOTE | 2024-06-05 17:02 | DVHPN2 ---
Consult Progress Note Date Seen: Jun 05, 2024 Subjective Other Systems: Patient was examined at bedside, she reports feeling better. Patient fully oriented answering questions, chest pain is gone but he is still on oxygen supplementation through nasal cannula 4 L. Objective vital signs Vital Sign Date Time Temp Pulse Resp B/P (MAP) Pulse Ox O2 Delivery O2 Flow Rate FiO2 06/05/24 14:35 151/100 06/05/24 13:00 98.0 65 17 99 98.0 06/05/24 11:46 Nasal Cannula 4.0 06/05/24 11:46 36 Total Intake and Output 06/04/24 06/04/24 06/05/24 15:00 23:00 07:00 Intake Total 110 ml Balance 110 ml medications Current Medications Medications Dose Ordered Sig/Keegan Route Start Time Stop Time Status Last Admin Dose Admin Atorvastatin Calcium 20 mg HS PO 06/03/24 22:00 06/04/24 22:00 20 MG Aspirin 162 mg DAILY PO 06/04/24 10:00 06/05/24 11:23 162 MG Albuterol 2.5 mg Q6HPRN PRN NEB 06/03/24 21:00 06/05/24 11:46 2.5 MG Gabapentin 300 mg BID PO 06/03/24 22:00 06/05/24 11:23 300 MG Spironolactone 50 mg DAILY PO 06/04/24 10:00 06/05/24 11:22 50 MG Hydralazine HCl 10 mg Q6HP PRN IV 06/03/24 21:00 06/04/24 04:27 10 MG Diagnostic Test (Pha) 1 strip ACHS 06/03/24 22:00 06/05/24 11:26 1 STRIP Insulin Human Regular ACHS SC 06/03/24 22:00 06/05/24 12:01 4 UNITS Dextrose 50 ml UD PRN IV 06/03/24 21:00 Temazepam 15 mg QHSP PRN PO 06/03/24 21:00 Ondansetron HCl 4 mg Q4HP PRN IV 06/03/24 21:00 Acetaminophen 650 mg Q6HP PRN PO 06/03/24 21:00 06/04/24 13:44 650 MG Nitroglycerin 0.4 mg Q5MINP PRN SL 06/03/24 21:00 Morphine Sulfate 2 mg Q30M PRN IV 06/03/24 21:00 Furosemide 40 mg BIDD IV 06/04/24 18:00 06/05/24 05:32 40 MG Metoprolol Succinate 50 mg DAILY PO 06/05/24 10:00 06/05/24 11:22 50 MG Labetalol HCl 20 mg Q2HPRN PRN IV 06/04/24 15:00 Lisinopril 40 mg DAILY PO 06/06/24 10:00 Hydralazine HCl 25 mg Q8HR PO 06/05/24 14:00 06/05/24 14:35 25 MG laboratory and microbiology Laboratory Tests 06/05/24 15:00 Test 06/05/24 15:00 Range/Units Serum Glucose 148 H 74-106 mg/dL Problem List/Assessment/Plan Problem List/Assessment/Plan Acute encephalopathy likely due to hypertensive emergency, stroke ruled out NSTEMI type 2 likely demand ischemia due to hypertensive emergency Acute hypoxemic respiratory failure likely due to bilateral pleural effusion likely transudative due to CHF exacerbation status post thoracentesis Heart failure systolic/diastolic likely due to 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 Mid inferior inferolateral wall hypokinesia. Thoracentesis, 1 L of fluid was removed Troponins elevation likely due to demand ischemia due to hypertensive emergency, NSTEMI type 2 Conservative management Decrease the blood pressure gradually Continue labetalol 20 mg q.2 hours p.r.n. IV hydralazine 25 mg t.i.d. Isosorbide dinitrate 10 mg t.i.d. Spironolactone 50 mg daily p.o. Lisinopril 20 mg daily p.o. Metoprolol daily p.o. 50 mg Nifedipine 60 mg b.i.d. p.o. Oxygen supplementation through nasal cannula 4 L UDS is pending There is no further workup indicated at this time, we are signing off Case discussed with Dr. Wren Critical care, time spent: 45 minutes Plan discussed with: Patient Date of Service: Jun 05, 2024 Billing Provider: ROSANNA WREN MD Cardiology Common Codes: [id number] INP/OBS CARE (High) MEME CAZARES RESIDENT Jun 05, 2024 17:02
[2024-06-05] MEDS: ISOSORBIDE DINITRATE 10 MG TAB PO SCH (18:09)
--- NOTE | 2024-06-05 20:10 | DVHINCON2 ---
Date of service: Jun 04, 2024 Referring Physician Shaquille Bucio MD Reason for Consultation Acute on chronic hypoxic respiratory failure and pleural effusion History of Present Illness A 68-year-old man with PMHx of CHF with preserved ejection fraction (EF 53% as of October), hypertension, type 2 diabetes, chronic kidney disease, history of methamphetamine use, and nicotine dependence (last use prior to hospitalization) who presents with c/o 2-day history of worsening shortness of breath with bilateral lower extremity swelling as well as testicular swelling. Also reports mild chest pressure. Denies cough, fever or any other associated symptoms. Pt lives at home with a caregiver and is on home oxygen therapy. Patient was admitted for further care and pulmonary consultation is requested for evaluation and management of acute on chronic hypoxic respiratory failure and pleural effusion. Review of Systems: 14-point review of systems negative unless otherwise noted above. Past Medical History: Uncontrolled hypertension Drug abuse Methamphetamine use Chronic kidney disease stage IIIB Heart failure systolic/diastolic NYHA lll Drug-induced cardiomyopathy Type 2 diabetes Nicotine dependence Past Surgical History: None. Medications: Reviewed. Allergies: No known drug allergies. Family History: Mother w/ heart disease. Social History: Smoker, <1 pack per day. Occasional alcohol use. No illicit drug use. Admits to history of methamphetamine use. Family History: FHx: heart disease G8 MOTHER Allergies: Coded Allergies: NO KNOWN ALLERGIES (Unverified , 06/10/12) Home Meds Discontinued Reported Medications Pantoprazole Sodium Sesquihydr (Protonix) 40 Mg Tab, 1 TAB PO BID for 30 Days, #60 06/04/24 Isosorbide Dinitrate (Isosorbide Dinitrate) 10 Mg Tab, 1 TAB PO TID for 30 Days, #90 06/04/24 Prednisone (Prednisone) 20 Mg Tab, 1 TAB PO BID for 5 Days, #10 06/04/24 Cefdinir (Cefdinir) 300 Mg Cap, 1 CAP PO BID for 6 Days, #12 06/04/24 Gabapentin (Gabapentin) 300 Mg Cap, 1 CAP PO TID 10/31/23 Metoprolol Succinate (Metoprolol Succinate Er) 25 Mg Tab, 1 TAB PO DAILY 10/31/23 Semaglutide (Ozempic) 4 Mg/3 Ml Inj, 1 MG SC QWEEKLY 10/31/23 Atorvastatin Calcium (Lipitor) 20 Mg Tab, 1 TAB PO DAILY 10/31/23 Glipizide (Glipizide) 5 Mg Tab, 1 TAB PO BID 10/31/23 Albuterol Sulfate (Albuterol Sulfate Hfa) 108 Mcg/Act Aer, 2 PUFF INH Q6HR PRN for WHEEZING 10/31/23 Tamsulosin Hcl (Tamsulosin Hcl) 0.4 Mg Cap, 1 TAB PO DAILY 10/31/23 Nifedipine (Nifedipine Er) 90 Mg Tab, 1 TAB PO DAILY 06/10/12 Current Medications Current Medications Medications (Trade) Dose Ordered Sig/Keegan Route PRN Reason Start Time Stop Time Status Last Admin Metoprolol Succinate (Toprol Xl) 50 mg DAILY PO 06/05/24 10:00 06/05/24 11:22 Lisinopril (Zestril Tablet) 40 mg DAILY PO 06/06/24 10:00 Hydralazine HCl (Apresoline Tablet) 25 mg Q8HR PO 06/05/24 14:00 06/05/24 17:01 DC 06/05/24 14:35 Hydralazine HCl (Apresoline Tablet) 30 mg Q8HR PO 06/05/24 22:00 Isosorbide Dinitrate (Isordil Tablet) 10 mg TID@06,12,18 PO 06/05/24 18:00 06/05/24 18:09 Vital Signs Vital Signs Date Time Temp Pulse Resp B/P (MAP) Pulse Ox O2 Delivery O2 Flow Rate FiO2 06/05/24 18:51 99 Nasal Cannula 4.0 06/05/24 18:51 36 06/05/24 18:17 171/85 06/05/24 17:37 98.4 63 17 98.4 Physical Exam Gen.: Patient lying in bed in no apparent distress. On supplemental oxygen. Head: Normocephalic, atraumatic. Eyes: EOMI/PERRLA. Ears: Normal hearing. Normal anatomy. Neck/trachea: Trachea midline, supple. Nose: Normal external anatomy. Mouth: Moist mucous membranes. Chest: Decreased air entry bilaterally. No wheezing or rhonchi. Cardiovascular: Positive S1, positive S2. Regular rate and rhythm. Abdomen: Positive bowel sounds in all 4 quadrants. Soft, non-tender, non- distended. : Deferred. Rectal: Deferred. Skin: Warm, dry. Intact. Extremities: 2+ radial pulses bilaterally. No lower extremity edema. Neuro: Awake, alert, oriented x3. No gross motor or sensory deficits. Cranial nerves II through XII intact. Gait not assessed. Labs/Diagnostic Data Labs Test 06/05/24 17:48 06/05/24 15:00 06/04/24 15:45 06/03/24 23:00 Range/Units POC Glucose 156 H 70-106 mg/dl White Blood Count 5.0 4.4-10.8 10^3/uL Red Blood Count 4.04 L 4.5-5.90 10^6/uL Hemoglobin 12.0 L 13.5-17.5 g/dL Hematocrit 37.5 L 41.0-53.0 % Mean Corpuscular Volume 92.8 80.0-100.0 fL Mean Corpuscular Hemoglobin 29.8 28.0-32.0 pg Mean Corpuscular Hemoglobin Concent 32.1 32.0-36.0 g/dL Red Cell Distribution Width 16.4 H 11.8-14.3 % Platelet Count 167 140-450 10^3/uL Mean Platelet Volume 9.4 6.9-10.8 fL Neutrophils (%) (Auto) 67.5 37.0-80.0 % Lymphocytes (%) (Auto) 18.7 10.0-50.0 % Monocytes (%) (Auto) 10.0 0.0-12.0 % Eosinophils (%) (Auto) 3.0 0.0-7.0 % Basophils (%) (Auto) 0.8 0.0-2.0 % Neutrophils # (Auto) 3.4 1.6-8.6 10 ^3/uL Lymphocytes # (Auto) 0.9 0.4-5.4 10 ^3/uL Monocytes # (Auto) 0.5 0-1.3 10 ^3/uL Eosinophils # (Auto) 0.2 0-0.8 10 ^3/uL Basophils # (Auto) 0 0-0.2 10 ^3/uL Nucleated Red Blood Cells 0.1 % Sodium Level 148 H 136-145 mmol/L Potassium Level 4.1 3.5-5.1 mmol/L Chloride Level 109 H 98-107 mmol/L Carbon Dioxide Level 35 H 20-31 mmol/L Anion Gap 4 L 5-15 Blood Urea Nitrogen 23 9-23 mg/dL Creatinine 1.61 H 0.700-1.30 mg/dL Glomerular Filtration Rate Calc 46 >90 mL/min BUN/Creatinine Ratio 14.3 10.0-20.0 Serum Glucose 148 H 74-106 mg/dL Calcium Level 9.0 8.7-10.4 mg/dL Body Fluid Source Pleural fluid Body Fluid pH 8.0 Body Fluid WBC (Manual) 77 0-200 CUMM Body Fluid RBC (Manual) 2728 H 0-2000 CUMM Body Fluid Mononuclear Cells 89 % Body Fluid Polymorphonuclear Cells 11 0-25 % Body Fluid Glucose 102 . mg/dL Body Fluid Total Protein 1.3 . g/dL Body Fluid Lactate Dehydrogenase 91 . IU/L Troponin I High Sensitivity 93 *H </=54 ng/L Test 06/03/24 20:28 06/03/24 20:00 Range/Units Urine Color Colorless Yellow Urine Clarity Clear Clear Urine pH 5.5 5.0-9.0 Urine Specific [place] 1.008 1.001-1.035 Urine Protein 2+ H Negative Urine Ketones Negative Negative Urine Blood Trace H Negative /uL Urine Nitrite Negative Negative Urine Bilirubin Negative Negative Urine Urobilinogen Normal Negative mg/dL Urine Leukocyte Esterase Negative Negative /uL Urine RBC 1 0 - 3 /hpf Urine WBC <1 0 - 3 /hpf Urine Squamous Epithelial Cells Few <5 /hpf Urine Amorphous Crystals Few None Seen /hpf Urine Bacteria None seen None Seen /hpf Urine Glucose Normal Normal mg/dL B-Type Natriuretic Peptide 1646.05 0-100 pg/mL Microbiology Date/Time Source Procedure Growth Status 06/05/24 03:12 Nose MRSA Screen - Final Complete 06/04/24 15:45 Pleural Fluid Gram Stain Pending Resulted 06/04/24 15:45 Pleural Fluid Body Fluid Culture - Preliminary Resulted Assessment Impression: Acute on chronic CHF exacerbation Pleural effusion Atelectasis Elevated troponin DM type II, uncontrolled Nicotine dependence Acute on chronic hypoxic respiratory failure Plan: S/p thoracentesis F/u pleural effusion cx and cytology Supplemental oxygen Titrate to keep O2 sats above 92%. Diurese to euvolemia Monitor ins/outs Monitor renal function Monitor electrolytes Supplement as necessary Follow up echo results Cardiology recommendations appreciated. Accu-Cheks, ISS DVT prophylaxis Prognosis: Guarded given patient's multiple co-morbidities. Rest of plan per hospitalist and other consultants. Thank you Shaquille Bucio MD, for allowing me to participate in this patient's care. Further recommendations will depend on the patient's clinical course. Please do not hesitate to contact me if you have any questions or concerns. This medical document was created using an electronic medical record system with i[employer] dictation system. Although these documentations are being carefully reviewed, there may still be some phonetic and typographical changes. The errors are purely typographical, due to imperfection on the software program, and do not reflect any compromise in the patient's medical care. Plan discussed with: Other (RN, MD Bucio) CLEM TOVAR MD Jun 05, 2024 20:10
[2024-06-05] MEDS: hydrALAZINE HCL 10 MG TAB PO SCH (21:41)
[2024-06-06] VITALS (12 sets, daily range): BP systolic 128–161; BP diastolic 72–90; PULSE 63–70; RESP 16–20; TEMP 97.8–98.1; O2SAT 92–99
--- NOTE | 2024-06-06 05:58 | DVH ---
EXAM: XY CHEST PORTABLE Indication:CHF Technique: Single frontal view of the chest was obtained Comparison: XY CHEST PORTABLE on DOS: 06/04/24, XY CHEST PORTABLE on DOS: 06/03/24, XY CHEST PORTABLE on DOS: 10/30/23 FINDINGS: Lines and Tubes: None Lungs: No focal consolidation. Pulmonary vascular congestion. Pleura: Small left pleural effusion. No pneumothorax. Cardiomediastinal contours: Cardiomegaly. Bones: No acute osseous abnormality. IMPRESSION: Decrease in small left pleural effusion. Cardiomegaly. Pulmonary vascular congestion.
[2024-06-06 05:59] LABS: Chloride 108 mmol/L (98-107); Potassium 4.3 mmol/L (3.5-5.1); Sodium 147 mmol/L (136-145)
[2024-06-06 06:00] LABS: Anion Gap 4 (5-15); Calcium 8.6 mg/dL (8.7-10.4); Carbon Dioxide 35 mmol/L (20-31)
[2024-06-06 06:05] LABS: BUN/Creatinine Ratio 18.4 (10.0-20.0); Blood Urea Nitrogen 32 mg/dL (9-23); Glucose 78 mg/dL (74-106)
--- NOTE | 2024-06-06 09:10 | DVHPN2 ---
Progress Note - Dictate Date Seen: Jun 05, 2024 Medical Necessity Reason Pt with a Central, PICC or Fol: No Subjective Patient seen and examined at bedside. Remains on supplemental oxygen Overnight events reviewed. vital signs Vital Sign Date Time Temp Pulse Resp B/P (MAP) Pulse Ox O2 Delivery O2 Flow Rate FiO2 06/06/24 07:03 96 Nasal Cannula 2.0 06/06/24 07:03 28 06/06/24 05:47 128/72 06/06/24 05:00 98.0 66 20 98.0 Total Intake and Output 06/05/24 06/05/24 06/06/24 15:00 23:00 07:00 Intake Total 780 ml 287 ml Output Total 400 ml Balance 780 ml -113 ml medications Current Medications Medications Dose Ordered Sig/Keegan Route Start Time Stop Time Status Last Admin Dose Admin Atorvastatin Calcium 20 mg HS PO 06/03/24 22:00 06/05/24 21:42 20 MG Aspirin 162 mg DAILY PO 06/04/24 10:00 06/05/24 11:23 162 MG Albuterol 2.5 mg Q6HPRN PRN NEB 06/03/24 21:00 06/05/24 11:46 2.5 MG Gabapentin 300 mg BID PO 06/03/24 22:00 06/05/24 21:42 300 MG Spironolactone 50 mg DAILY PO 06/04/24 10:00 06/05/24 11:22 50 MG Hydralazine HCl 10 mg Q6HP PRN IV 06/03/24 21:00 06/04/24 04:27 10 MG Diagnostic Test (Pha) 1 strip ACHS 06/03/24 22:00 06/06/24 06:47 1 STRIP Insulin Human Regular ACHS SC 06/03/24 22:00 06/05/24 21:53 3 UNITS Dextrose 50 ml UD PRN IV 06/03/24 21:00 Temazepam 15 mg QHSP PRN PO 06/03/24 21:00 Ondansetron HCl 4 mg Q4HP PRN IV 06/03/24 21:00 Acetaminophen 650 mg Q6HP PRN PO 06/03/24 21:00 06/04/24 13:44 650 MG Nitroglycerin 0.4 mg Q5MINP PRN SL 06/03/24 21:00 Morphine Sulfate 2 mg Q30M PRN IV 06/03/24 21:00 Furosemide 40 mg BIDD IV 06/04/24 18:00 06/06/24 05:46 40 MG Metoprolol Succinate 50 mg DAILY PO 06/05/24 10:00 06/05/24 11:22 50 MG Labetalol HCl 20 mg Q2HPRN PRN IV 06/04/24 15:00 Lisinopril 40 mg DAILY PO 06/06/24 10:00 Hydralazine HCl 30 mg Q8HR PO 06/05/24 22:00 06/06/24 05:47 30 MG Isosorbide Dinitrate 10 mg TID@06,12,18 PO 06/05/24 18:00 06/06/24 05:47 10 MG objective Gen.: Patient lying in bed in no apparent distress. On supplemental oxygen. Head: Normocephalic, atraumatic. Eyes: EOMI/PERRLA. Ears: Normal hearing. Normal anatomy. Neck/trachea: Trachea midline, supple. Nose: Normal external anatomy. Mouth: Moist mucous membranes. Chest: Decreased air entry bilaterally. No wheezing or rhonchi. Cardiovascular: Positive S1, positive S2. Regular rate and rhythm. Abdomen: Positive bowel sounds in all 4 quadrants. Soft, non-tender, non- distended. : Deferred. Rectal: Deferred. Skin: Warm, dry. Intact. Extremities: 2+ radial pulses bilaterally. No lower extremity edema. Neuro: Awake, alert, oriented x3. No gross motor or sensory deficits. Cranial nerves II through XII intact. Gait not assessed. laboratory and microbiology Laboratory Tests 06/06/24 04:47 06/05/24 15:00 Test 06/06/24 04:47 Range/Units Serum Glucose 78 74-106 mg/dL Assessment/Plan Impression: Acute on chronic CHF exacerbation Pleural effusion Atelectasis Elevated troponin DM type II, uncontrolled Nicotine dependence Acute on chronic hypoxic respiratory failure Events: On supplemental O2 at 4 LPM NC Taper O2 as tolerated S/p thoracentesis Continue diuresis Monitor renal function Monitor electrolytes Supplement as necessary Monitor ins /outs Follow up echo results Cardiology recs appreciated Labs and imaging reviewed. Rest of plan as noted below. Plan: S/p thoracentesis F/u pleural effusion cx and cytology Supplemental oxygen Titrate to keep O2 sats above 92%. Diurese to euvolemia Monitor ins/outs Monitor renal function Monitor electrolytes Supplement as necessary Follow up echo results Cardiology recommendations appreciated. Accu-Cheks, ISS DVT prophylaxis Prognosis: Guarded given patient's multiple co-morbidities. Rest of plan per hospitalist and other consultants. Thank you Shaquille Bucio MD, for allowing me to participate in this patient's care. Further recommendations will depend on the patient's clinical course. Please do not hesitate to contact me if you have any questions or concerns. This medical document was created using an electronic medical record system with [employer] dictation system. Although these documentations are being carefully reviewed, there may still be some phonetic and typographical changes. The errors are purely typographical, due to imperfection on the software program, and do not reflect any compromise in the patient's medical care. Plan discussed with: Patient, Other (RN) CLEM TOVAR MD Jun 06, 2024 09:10
[2024-06-06] MEDS: LISINOPRIL 20 MG TAB PO SCH (10:59)
--- NOTE | 2024-06-06 16:23 | DVHPN2 ---
Subjective He is still complaining of shortness of breaths He feels he has edema in his arms and legs He is receiving IV Lasix 40 mg twice a day Reviewed: Care Plan, H&P, Labs, Medications, Previous Orders Changes from previous H/P or p: Changes General: Per HPI Objective Vitals Vital Signs Date Time Temp Pulse Resp B/P (MAP) Pulse Ox O2 Delivery O2 Flow Rate FiO2 06/06/24 14:29 156/85 06/06/24 13:00 97.8 67 16 96 97.8 06/06/24 10:00 Nasal Cannula* 3 32 Intake/Output Intake and Output 06/06/24 07:00 Intake Total 1067 ml Output Total 400 ml Balance 667 ml Intake Oral 1067 ml Output Urine Total 400 ml # Voids 4 General Appearance: Alert, Oriented X3, Cooperative, No acute distress HEENT: Atraumatic, PERRLA Lungs: Clear to auscultation, Normal air movement Cardiovascular: Normal S1, Normal S2 Abdomen: Normal bowel sounds Genitourinary: No Apparent Abnormalities Musculoskeletal: Normal sensory function, Normal motor function Neuro: Normal gait, Normal speech Skin: Dry, Intact Psych/Mental Status: Mental status NL, Mood NL Medications Current Medications Medications Dose Ordered Sig/Keegan Route Start Time Stop Time Status Last Admin Dose Admin Atorvastatin Calcium 20 mg HS PO 06/03/24 22:00 06/05/24 21:42 20 MG Aspirin 162 mg DAILY PO 06/04/24 10:00 06/06/24 11:00 162 MG Albuterol 2.5 mg Q6HPRN PRN NEB 06/03/24 21:00 06/05/24 11:46 2.5 MG Gabapentin 300 mg BID PO 06/03/24 22:00 06/06/24 10:59 300 MG Spironolactone 50 mg DAILY PO 06/04/24 10:00 06/06/24 11:00 50 MG Hydralazine HCl 10 mg Q6HP PRN IV 06/03/24 21:00 06/04/24 04:27 10 MG Diagnostic Test (Pha) 1 strip ACHS 06/03/24 22:00 06/06/24 11:30 1 STRIP Insulin Human Regular ACHS SC 06/03/24 22:00 06/06/24 11:30 3 UNITS Dextrose 50 ml UD PRN IV 06/03/24 21:00 Temazepam 15 mg QHSP PRN PO 06/03/24 21:00 Ondansetron HCl 4 mg Q4HP PRN IV 06/03/24 21:00 Acetaminophen 650 mg Q6HP PRN PO 06/03/24 21:00 06/04/24 13:44 650 MG Nitroglycerin 0.4 mg Q5MINP PRN SL 06/03/24 21:00 Morphine Sulfate 2 mg Q30M PRN IV 06/03/24 21:00 Furosemide 40 mg BIDD IV 06/04/24 18:00 06/06/24 05:46 40 MG Metoprolol Succinate 50 mg DAILY PO 06/05/24 10:00 06/06/24 10:59 50 MG Labetalol HCl 20 mg Q2HPRN PRN IV 06/04/24 15:00 Lisinopril 40 mg DAILY PO 06/06/24 10:00 06/06/24 10:59 40 MG Hydralazine HCl 30 mg Q8HR PO 06/05/24 22:00 06/06/24 14:29 30 MG Isosorbide Dinitrate 10 mg TID@06,12,18 PO 06/05/24 18:00 06/06/24 12:00 10 MG Laboratory Results Laboratory Tests 06/05/24 15:00 06/06/24 04:47 Chemistry Test 06/06/24 04:47 Calcium Level 8.6 mg/dL (8.7-10.4) L Urinalysis Test 06/03/24 20:28 Urine Color Colorless (Yellow) Urine Clarity Clear (Clear) Urine pH 5.5 (5.0-9.0) Urine Specific [place] 1.008 (1.001-1.035) Urine Protein 2+ (Negative) H Urine Ketones Negative (Negative) Urine Blood Trace /uL (Negative) H Urine Nitrite Negative (Negative) Urine Bilirubin Negative (Negative) Urine Urobilinogen Normal mg/dL (Negative) Urine Leukocyte Esterase Negative /uL (Negative) Urine RBC 1 /hpf (0 - 3) Urine WBC <1 /hpf (0 - 3) Urine Squamous Epithelial Cells Few /hpf (<5) Urine Amorphous Crystals Few /hpf (None Seen) Urine Bacteria None seen /hpf (None Seen) Urine Glucose Normal mg/dL (Normal) Microbiology Microbiology Date/Time Source Procedure Growth Status 06/05/24 03:12 Nose MRSA Screen - Final Complete 06/04/24 15:45 Pleural Fluid Gram Stain - Final Resulted 06/04/24 15:45 Pleural Fluid Body Fluid Culture - Preliminary Resulted Assessment/Plan Assessment/Plan Acute on chronic systolic and diastolic heart failure Chronic respiratory failure on home O2 Chronic kidney disease NSTEMI type 2 Generalized weakness Right Pleural effusion status post right thoracentesis Minimal left pleural effusion Hypernatremia Plan Continue IV Lasix Start physical therapy Oxygen as needed Fluid restriction Aspirin Lipitor Hydralazine Lisinopril Metoprolol Aldactone Plan discussed with: Patient My Orders Orders - HEBERT QUIROGA MD Procedure Category Date Status Time Apply Barrier Cream EDDI 06/06/24 In Process 10:30 Specialty Bed Mattress ORDERS 06/06/24 Transmitted 10:30 * Dietary Consult CONS 06/06/24 Transmitted 13:26 Date of Service: Jun 06, 2024 Billing Provider: HEBERT QUIROGA MD Common Visit Codes: [id number] INP/OBS CARE(HIGH) HEBERT QUIROGA MD Jun 06, 2024 16:23
[2024-06-06 20:46] LABS: Amphetamine Screen, Urine Neg (NEGATIVE); Benzodiazephine Screen, Urine Neg (NEGATIVE)
[2024-06-06 20:47] LABS: Barbiturate Scree,Urine Neg (NEGATIVE); Cannabinoid Screen, Urine Neg (NEGATIVE); Cocaine Screen, Urine Neg (NEGATIVE); Opiate Scree,Urine Neg (NEGATIVE); Phencyclidine Screen, Urine Neg (NEGATIVE)
[2024-06-07] VITALS (10 sets, daily range): BP systolic 132–196; BP diastolic 75–105; PULSE 62–75; RESP 18; TEMP 98–98.7; O2SAT 95–100
[2024-06-07 06:42] LABS: Anion Gap 3 (5-15); Carbon Dioxide 35 mmol/L (20-31); Chloride 106 mmol/L (98-107); Potassium 4.4 mmol/L (3.5-5.1); Sodium 144 mmol/L (136-145)
[2024-06-07 06:48] LABS: BUN/Creatinine Ratio 22.1 (10.0-20.0); Blood Urea Nitrogen 38 mg/dL (9-23); Glucose 116 mg/dL (74-106)
--- NOTE | 2024-06-07 10:47 | DVH ---
CHEST RADIOGRAPH Indication:uncontrolled coughing and more swelling Technique: Single frontal view of the chest was obtained COMPARISON: XY CHEST PORTABLE on DOS: 06/06/24, XY CHEST PORTABLE on DOS: 06/04/24, XY CHEST PORTABLE on DOS: 06/03/24 FINDINGS: Lines and Tubes: None Lungs: Congestion Pleura: Small to moderate left pleural effusion. No pneumothorax. Cardiomediastinal contours: Unremarkable Bones: Unremarkable IMPRESSION: Congestion and small to moderate left pleural effusion.
--- NOTE | 2024-06-07 11:21 | DVHPN2 ---
Subjective He is complaining of more shortness of breaths now Oxygen has to be bumped up to 6 L Two repeat chest x-ray shows worsening left pleural effusion Reviewed: Care Plan, H&P, Labs, Medications, Previous Orders Changes from previous H/P or p: Changes General: Per HPI Objective Vitals Vital Signs Date Time Temp Pulse Resp B/P (MAP) Pulse Ox O2 Delivery O2 Flow Rate FiO2 06/07/24 09:40 75 148/76 06/07/24 09:00 98.3 18 95 98.3 06/06/24 22:52 Nasal Cannula* 2 28 Intake/Output Intake and Output 06/07/24 07:00 Intake Total 1100 ml Output Total 1200 ml Balance -100 ml Intake Oral 1100 ml Output Urine Total 1200 ml # Voids 3 General Appearance: Alert, Oriented X3, Cooperative, No acute distress HEENT: Atraumatic, PERRLA Lungs: Clear to auscultation, Normal air movement Cardiovascular: Normal S1, Normal S2 Abdomen: Normal bowel sounds Genitourinary: No Apparent Abnormalities Musculoskeletal: Normal sensory function, Normal motor function Neuro: Normal gait, Normal speech Skin: Dry, Intact Psych/Mental Status: Mental status NL, Mood NL Medications Current Medications Medications Dose Ordered Sig/Keegan Route Start Time Stop Time Status Last Admin Dose Admin Atorvastatin Calcium 20 mg HS PO 06/03/24 22:00 06/06/24 21:41 20 MG Aspirin 162 mg DAILY PO 06/04/24 10:00 06/07/24 09:40 162 MG Albuterol 2.5 mg Q6HPRN PRN NEB 06/03/24 21:00 06/05/24 11:46 2.5 MG Gabapentin 300 mg BID PO 06/03/24 22:00 06/07/24 09:40 300 MG Spironolactone 50 mg DAILY PO 06/04/24 10:00 06/07/24 09:39 50 MG Hydralazine HCl 10 mg Q6HP PRN IV 06/03/24 21:00 06/04/24 04:27 10 MG Diagnostic Test (Pha) 1 strip ACHS 06/03/24 22:00 06/07/24 06:24 1 STRIP Insulin Human Regular ACHS SC 06/03/24 22:00 06/06/24 21:36 3 UNITS Dextrose 50 ml UD PRN IV 06/03/24 21:00 Temazepam 15 mg QHSP PRN PO 06/03/24 21:00 Ondansetron HCl 4 mg Q4HP PRN IV 06/03/24 21:00 Acetaminophen 650 mg Q6HP PRN PO 06/03/24 21:00 06/04/24 13:44 650 MG Nitroglycerin 0.4 mg Q5MINP PRN SL 06/03/24 21:00 Morphine Sulfate 2 mg Q30M PRN IV 06/03/24 21:00 Furosemide 40 mg BIDD IV 06/04/24 18:00 06/07/24 06:15 40 MG Metoprolol Succinate 50 mg DAILY PO 06/05/24 10:00 06/07/24 09:40 50 MG Labetalol HCl 20 mg Q2HPRN PRN IV 06/04/24 15:00 Lisinopril 40 mg DAILY PO 06/06/24 10:00 06/07/24 09:39 40 MG Hydralazine HCl 30 mg Q8HR PO 06/05/24 22:00 06/07/24 06:14 30 MG Isosorbide Dinitrate 10 mg TID@06,12,18 PO 06/05/24 18:00 06/07/24 06:14 10 MG Laboratory Results Laboratory Tests 06/05/24 15:00 06/07/24 05:52 Chemistry Test 06/07/24 05:52 Calcium Level 9.0 mg/dL (8.7-10.4) Urinalysis Test 06/03/24 20:28 06/06/24 20:08 Urine Color Colorless (Yellow) Urine Clarity Clear (Clear) Urine pH 5.5 (5.0-9.0) Urine Specific [place] 1.008 (1.001-1.035) Urine Protein 2+ (Negative) H Urine Ketones Negative (Negative) Urine Blood Trace /uL (Negative) H Urine Nitrite Negative (Negative) Urine Bilirubin Negative (Negative) Urine Urobilinogen Normal mg/dL (Negative) Urine Leukocyte Esterase Negative /uL (Negative) Urine RBC 1 /hpf (0 - 3) Urine WBC <1 /hpf (0 - 3) Urine Squamous Epithelial Cells Few /hpf (<5) Urine Amorphous Crystals Few /hpf (None Seen) Urine Bacteria None seen /hpf (None Seen) Urine Glucose Normal mg/dL (Normal) Urine Osmolality 352 mOsm/kg Microbiology Microbiology Date/Time Source Procedure Growth Status 06/05/24 03:12 Nose MRSA Screen - Final Complete 06/04/24 15:45 Pleural Fluid Gram Stain - Final Resulted 06/04/24 15:45 Pleural Fluid Body Fluid Culture - Preliminary Resulted Assessment/Plan Assessment/Plan Acute on chronic systolic and diastolic heart failure Chronic respiratory failure on home O2 Chronic kidney disease NSTEMI type 2 Generalized weakness Right Pleural effusion status post right thoracentesis Minimal left pleural effusion Hypernatremia Plan 06/06/2024: Continue IV Lasix Start physical therapy Oxygen as needed Fluid restriction Aspirin Lipitor Hydralazine Lisinopril Metoprolol Aldactone 06/07/2024: Left pleural effusion: Repeat chest x-ray was done now shows worsening left pleural effusion, patient needs thoracentesis Congestive heart failure: Continue IV Lasix Hypoxia: Oxygen as needed Consult IR for thoracentesis Plan discussed with: Patient My Orders Orders - HEBERT QUIROGA MD Procedure Category Date Status Time Apply Barrier Cream EDDI 06/06/24 In Process 10:30 Specialty Bed Mattress ORDERS 06/06/24 Transmitted 10:30 * Dietary Consult CONS 06/06/24 Transmitted 13:26 Pt Request For Service PT 06/06/24 Logged 16:12 Maintain Fluid EDDI 06/06/24 In Process Restrictions 16:23 Chest Xray 1 View XY 06/07/24 Resulted 10:00 Date of Service: Jun 07, 2024 Billing Provider: HEBERT QUIROGA MD Common Visit Codes: [id number] INP/OBS CARE(HIGH) HEBERT QUIROGA MD Jun 07, 2024 11:21
[2024-06-08] VITALS (7 sets, daily range): BP systolic 130–152; BP diastolic 76–83; PULSE 72–81; RESP 15–18; TEMP 98.1–98.3; O2SAT 99–100
--- NOTE | 2024-06-08 08:46 | DVH ---
Bilateral Chest Sonogram Date: 06/08/2024 08:12 AM Clinical history: FLUID CHECK FOR POSSIBLE THORACENTESIS Technique: Limited sonographic evaluation of the bilateral chest was performed to evaluate for pleur al effusion. Finding/Impression: Small right and trace left pleural effusions.
[2024-06-08] MEDS ORDERED: METO-6 PO (15:10)
[2024-06-08] MEDS ORDERED: FURO1TAB31 PO (15:10)
[2024-06-08] MEDS ORDERED: SPIR25TA PO (15:10)
[2024-06-08] MEDS ORDERED: LISI20TA56 PO (15:10)
--- NOTE | 2024-06-08 16:34 | DVHDS2 ---
Discharge Summary Date of Admission Jun 03, 2024 at 20:57 Date of Discharge: Jun 08, 2024 Admitting Diagnosis Acute on chronic decompensated systolic heart failure Labs/Diagnostic Data: Laboratory Results Test 06/07/24 21:00 06/07/24 05:52 06/06/24 20:08 06/05/24 15:00 POC Glucose 296 mg/dl (70-106) Sodium Level 144 mmol/L (136-145) Potassium Level 4.4 mmol/L (3.5-5.1) Chloride Level 106 mmol/L (98-107) Carbon Dioxide Level 35 mmol/L (20-31) Anion Gap 3 (5-15) Blood Urea Nitrogen 38 mg/dL (9-23) Creatinine 1.72 mg/dL (0.700-1.30) Glomerular Filtration Rate Calc 43 mL/min (>90) BUN/Creatinine Ratio 22.1 (10.0-20.0) Serum Glucose 116 mg/dL (74-106) Calcium Level 9.0 mg/dL (8.7-10.4) Urine Osmolality 352 mOsm/kg Urine Opiates Screen Neg (NEGATIVE) Urine Fentanyl Screen Neg (NEGATIVE) Urine Barbiturates Screen Neg (NEGATIVE) Urine Phencyclidine Screen Neg (NEGATIVE) Urine Amphetamines Screen Neg (NEGATIVE) Urine Benzodiazepines Screen Neg (NEGATIVE) Urine Cocaine Screen Neg (NEGATIVE) Urine Cannabinoids Screen Neg (NEGATIVE) White Blood Count 5.0 10^3/uL (4.4-10.8) Red Blood Count 4.04 10^6/uL (4.5-5.90) Hemoglobin 12.0 g/dL (13.5-17.5) Hematocrit 37.5 % (41.0-53.0) Mean Corpuscular Volume 92.8 fL (80.0-100.0) Mean Corpuscular Hemoglobin 29.8 pg (28.0-32.0) Mean Corpuscular Hemoglobin Concent 32.1 g/dL (32.0-36.0) Red Cell Distribution Width 16.4 % (11.8-14.3) Platelet Count 167 10^3/uL (140-450) Mean Platelet Volume 9.4 fL (6.9-10.8) Neutrophils (%) (Auto) 67.5 % (37.0-80.0) Lymphocytes (%) (Auto) 18.7 % (10.0-50.0) Monocytes (%) (Auto) 10.0 % (0.0-12.0) Eosinophils (%) (Auto) 3.0 % (0.0-7.0) Basophils (%) (Auto) 0.8 % (0.0-2.0) Neutrophils # (Auto) 3.4 10 ^3/uL (1.6-8.6) Lymphocytes # (Auto) 0.9 10 ^3/uL (0.4-5.4) Monocytes # (Auto) 0.5 10 ^3/uL (0-1.3) Eosinophils # (Auto) 0.2 10 ^3/uL (0-0.8) Basophils # (Auto) 0 10 ^3/uL (0-0.2) Nucleated Red Blood Cells 0.1 % Test 06/04/24 15:45 06/03/24 23:00 06/03/24 20:28 06/03/24 20:00 Body Fluid Source Pleural fluid Body Fluid pH 8.0 Body Fluid WBC (Manual) 77 CUMM (0-200) Body Fluid RBC (Manual) 2728 CUMM (0-2000) Body Fluid Mononuclear Cells 89 % Body Fluid Polymorphonuclear Cells 11 % (0-25) Body Fluid Glucose 102 mg/dL (.) Body Fluid Total Protein 1.3 g/dL (.) Body Fluid Lactate Dehydrogenase 91 IU/L (.) Troponin I High Sensitivity 93 ng/L (</=54) Urine Color Colorless (Yellow) Urine Clarity Clear (Clear) Urine pH 5.5 (5.0-9.0) Urine Specific [place] 1.008 (1.001-1.035) Urine Protein 2+ (Negative) Urine Ketones Negative (Negative) Urine Blood Trace /uL (Negative) Urine Nitrite Negative (Negative) Urine Bilirubin Negative (Negative) Urine Urobilinogen Normal mg/dL (Negative) Urine Leukocyte Esterase Negative /uL (Negative) Urine RBC 1 /hpf (0 - 3) Urine WBC <1 /hpf (0 - 3) Urine Squamous Epithelial Cells Few /hpf (<5) Urine Amorphous Crystals Few /hpf (None Seen) Urine Bacteria None seen /hpf (None Seen) Urine Glucose Normal mg/dL (Normal) B-Type Natriuretic Peptide 1646.05 pg/mL (0-100) Other Laboratory Tests 06/07/24 05:52 06/05/24 15:00 Brief Hx & Hospital Course: History of Present Illness 68 year with a history of congestive heart failure evaluation shortness for breath. The patient reports a two day history of worsening shortness for breath with bilateral lower extremity swelling as well as testicular swelling. Reports mild chest pressure. Denies cough or fever. He currently uses oxygen at home. Denies any other acute complaints at the moment. Course of hospitalization: Initial presentation with the patient in the emergency room found the patient to have altered mental status. According to the patient's family, the patient has a history of illicit drug use. UDS was found to be negative. Patient had CT scan of the head which was negative for any acute intracranial pathology. Patient's mental status improved. Chest x-ray reveals bilateral pleural effusions, for which patient underwent right thoracentesis with approximately 1 L of fluid removed. Patient was started on aggressive IV diuresis. Heart failure medication was instituted, stepwise taking the patient's renal function as well as blood pressure and consideration. Echocardiogram was performed which revealed ejection fraction of approximately 35% to 40%. The patient is now off of O2 supplementation in his requesting to be discharged home. The patient had re-evaluation of the left pleural effusion via ultrasound, which did not have sufficient enough fluid for thoracentesis. The patient will be discharged home and be continued on Lasix, spironolactone, Toprol-XL, and now with improved renal function, losartan. He is instructed to follow up with rn interventional in [place]. And later time, if the patient was found to be compliant with his medications Jardiance or Farxiga can be added to his heart failure regimen. The patient was also instructed to abstain from illicit drug use. Physical exam General: Alert and Oriented x3. No acute distress. Well-nourished. Eyes: EOMI. Anicteric. HENT: Moist mucous membranes. Lungs: Clear to auscultation bilaterally. No accessory muscle use. Cardiovascular: Regular rate and rhythm. No murmur. No JVD. Abdomen: Soft, non-tender and non-distended. No palpable masses. Extremities: No edema. Non-tender. Skin: No rashes or lesions. Warm. Neurologic: No focal neurological deficits. CN II-XII grossly intact, but not individually tested. Psychiatric: Cooperative. Appropriate mood and affect. Total time spent with patient discussing and formulating plan of care: 35 minutes. This medical document was created using an electronic medical record system with [employer] dictation system. Although this document has been carefully reviewed, there may still be some phonetic and typographical errors. These areas are purely typographical due to imperfections of the software programs, and do not reflect any compromise in the patient's medical care. Consults/Reason for consult Cardiology: NSTEMI type 2 Condition at Discharge: Poor Final Diagnosis/Problems List Acute on chronic systolic heart failure Secondary Diagnosis: -metabolic encephalopathy, probably toxic -bilateral pleural effusions -acute on chronic systolic and diastolic heart failure -history of polysubstance abuse -NSTEMI type 2 -CKD stage IIIA -anemia Discharge Disposition: Home Discharge Instruct/Medications Diet: Cardiac 2g Na,low cholest Activity: No Restrictions, As Tolerated Follow Up/Referral: Dr. Perez in 1-2 weeks Medications: Lasix 40 mg p.o. daily Toprol-XL 50 mg p.o. daily Spironolactone 50 mg p.o. daily Lisinopril 20 mg p.o. daily 36 Discharge Statement: "Patient was advised to return to the ER or call 911 if any headaches, dizziness, shortness of breath, chest pain, abdominal pain, bleeding, fevers, or worsening of medical condition. Patient was counseled about treatment plan, medications, possible side effects, patientverbalized understanding. All questions were answered to the best of my ability. This discharge took greater then 30 minutes in planning, reviewing documentation, counseling the patient, and discussing with other team members." ASSESSMENT ASSESSMENT Assessment Acute on chronic systolic heart failure Date of Service: Jun 08, 2024 Billing Provider: CHECO STACK NP Common Visit Codes: 73901-FNW/[id number] DISCH DAY >30min CHECO STACK NP Jun 08, 2024 16:34
--- NOTE | 2024-06-08 19:25 | DVHPN2 ---
Progress Note - Dictate Date Seen: Jun 08, 2024 Medical Necessity Reason Pt with a Central, PICC or Fol: No Subjective Patient seen and examined at bedside. Remains on supplemental oxygen Overnight events reviewed. vital signs Vital Sign Date Time Temp Pulse Resp B/P (MAP) Pulse Ox O2 Delivery O2 Flow Rate FiO2 06/08/24 10:00 99 Nasal Cannula* 3 32 06/08/24 09:51 140/81 06/08/24 09:51 76 06/08/24 09:00 98.1 15 98.1 Total Intake and Output 06/07/24 06/07/24 06/08/24 14:59 22:59 06:59 Intake Total 300 ml 880 ml 150 ml Output Total 600 ml 1200 ml Balance 300 ml 280 ml -1050 ml objective Gen.: Patient lying in bed in no apparent distress. On supplemental oxygen. Head: Normocephalic, atraumatic. Eyes: EOMI/PERRLA. Ears: Normal hearing. Normal anatomy. Neck/trachea: Trachea midline, supple. Nose: Normal external anatomy. Mouth: Moist mucous membranes. Chest: Decreased air entry bilaterally. No wheezing or rhonchi. Cardiovascular: Positive S1, positive S2. Regular rate and rhythm. Abdomen: Positive bowel sounds in all 4 quadrants. Soft, non-tender, non- distended. : Deferred. Rectal: Deferred. Skin: Warm, dry. Intact. Extremities: 2+ radial pulses bilaterally. No lower extremity edema. Neuro: Awake, alert, oriented x3. No gross motor or sensory deficits. Cranial nerves II through XII intact. Gait not assessed. laboratory and microbiology Laboratory Tests 06/07/24 05:52 06/05/24 15:00 Test 06/07/24 05:52 Range/Units Serum Glucose 116 H 74-106 mg/dL Assessment/Plan Impression: Acute on chronic CHF exacerbation Pleural effusion Atelectasis Elevated troponin DM type II, uncontrolled Nicotine dependence Acute on chronic hypoxic respiratory failure Pulmonary hypertension, RVSP 38 mmHg. Events: On supplemental O2 at 3 LPM NC Taper O2 as tolerated Chest US: Small right and trace left pleural effusion. Continue diuresis Monitor renal function Monitor electrolytes Supplement as necessary Monitor ins /outs Echo results reviewed. Grade 2 diastolic dysfunction. Cardiology recs appreciated Recommend follow up in 2-3 weeks in pulmonary clinic. Labs and imaging reviewed. Rest of plan as noted below. Plan: S/p thoracentesis F/u pleural effusion cx and cytology Supplemental oxygen Titrate to keep O2 sats above 92%. Diurese to euvolemia Monitor ins/outs Monitor renal function Monitor electrolytes Supplement as necessary Follow up echo results Cardiology recommendations appreciated. Accu-Cheks, ISS DVT prophylaxis Prognosis: Guarded given patient's multiple co-morbidities. Rest of plan per hospitalist and other consultants. Thank you Shaquille Bucio MD, for allowing me to participate in this patient's care. Further recommendations will depend on the patient's clinical course. Please do not hesitate to contact me if you have any questions or concerns. This medical document was created using an electronic medical record system with [employer] dictation system. Although these documentations are being carefully reviewed, there may still be some phonetic and typographical changes. The errors are purely typographical, due to imperfection on the software program, and do not reflect any compromise in the patient's medical care. Dietary Evaluation Review Comments: Continue current plan of care Expected Outcomes/Goals: F/U in 3-5 days Plan discussed with: Other (RN, MANAGER IMAGING) CLEM TOVAR MD Jun 08, 2024 19:25
== END 2024-06-08 17:19 | disposition left against medical advice (07) | DRG 194 ==
LOC: EDBD 19:35 → ER 19:35 → TELE 20:57 → TELE-WESTW 06-04 23:40
PROVIDERS: ADMIT Internal Medicine Geriatric Medicine; ATTEND Nurse Practitioner Acute Care
PROC: 0W993ZZ Drainage of Right Pleural Cavity, Percutaneous Approach (ICD-10-PCS; principal; 2024-06-04)
DX: I13.0 Hypertensive heart and chronic kidney disease with heart failure and stage 1 through stage 4 chronic kidney disease, or unspecified chronic kidney disease (principal); I21.A1 Myocardial infarction type 2; G92.8 Other toxic encephalopathy; N17.9 Acute kidney failure, unspecified; E87.0 Hyperosmolality and hypernatremia; I27.20 Pulmonary hypertension, unspecified; J96.10 Chronic respiratory failure, unspecified whether with hypoxia or hypercapnia; E11.22 Type 2 diabetes mellitus with diabetic chronic kidney disease; D64.9 Anemia, unspecified; I50.23 Acute on chronic systolic (congestive) heart failure; Z53.29 Procedure and treatment not carried out because of patient's decision for other reasons; N18.31 Chronic kidney disease, stage 3a; I16.1 Hypertensive emergency; J98.11 Atelectasis; N18.32 Chronic kidney disease, stage 3b; F17.210 Nicotine dependence, cigarettes, uncomplicated; N50.89 Other specified disorders of the male genital organs; F15.10 Other stimulant abuse, uncomplicated; Z79.899 Other long term (current) drug therapy; Z82.49 Family history of ischemic heart disease and other diseases of the circulatory system; Z99.81 Dependence on supplemental oxygen
CPT/HCPCS: 32555; 36415; 36600; 70450; 71045; 71250; 76604; 76942; 80048; 80307; 81001; 82805; 82962; 83880; 83935; 83986; 84484; 85025; 87081; 87205; 89051; 93005; 93306; 94640; 96374; 96375; 99291; G0378; J1815